=== PATIENT | male | born 1935 | race Caucasian/White ===

== ENCOUNTER 2016-10-22 15:32 | Inpatient (IN) | payer OTHER ==
[2016-10-22 16:08] LABS: BASOPHILS # (AUTO) 0.1 K/uL (0-0.2); BASOPHILS % (AUTO) 0.5 % (0.0-3.0); EOSINOPHILS # (AUTO) 0.1 K/ul (0.0-0.7); EOSINOPHILS % (AUTO) 0.5 % (0.0-7.0); HEMATOCRIT 43.6 % (42.0-52.0); HEMOGLOBIN 14.7 g/dl (14.0-18.0); IMMATURE GRANULOCYTE % (AUTO) 0.5 % (0.0-5.0); LYMPHOCYTES # (AUTO) 2.4 K/uL (0.60-3.4); LYMPHOCYTES % (AUTO) 25.4 (10.0-50.0); MEAN CORPUSCULAR HEMOGLOBIN 30.8 pg (27.0-31.0); MEAN CORPUSCULAR HGB CONC 33.7 (31.8-35.4); MEAN CORPUSCULAR VOLUME 91.4 fl (80.0-94.0); MONOCYTES # (AUTO) 0.9 K/uL (0.4-2.0); MONOCYTES % (AUTO) 9.4 (0-10); NEUTROPHILS # (AUTO) 5.9 K/ul (2.0-6.9); NEUTROPHILS % (AUTO) 63.7; PLATELET COUNT 266 10^3/uL (140-440); RED BLOOD COUNT 4.77 10^6/ul (4.70-6.10); WHITE BLOOD COUNT 9.33 K/ul (4.2-10.2)
[2016-10-22 16:29] LABS: ALBUMIN 3.2 g/dL (3.4-5.0); ALBUMIN/GLOBULIN RATIO 0.84; ANION GAP 13.1; BILIRUBIN,TOTAL 0.64 mg/dL (0.00-1.20); BUN/CREATININE RATIO 21.33; CALCIUM 9.5 mg/dL (8.2-10.2); CREATININE 0.75 mg/dL (0.60-1.10); POTASSIUM 4.1 mmol/L (3.5-5.1)
--- NOTE | 2016-10-22 16:41 | CT ---
EXAM: CT thoracic spine without contrast. HISTORY: Back pain following a fall 1 day prior. COMPARISON: Chest radiograph 06/24/2013. TECHNIQUE: Multiple axial images of the thoracic spine were obtained without intravenous contrast. Images were reformatted in the sagittal and coronal planes. FINDINGS: Curvature and alignment are normal. Vertebral body heights are maintained in the thoraci c spine. Multilevel Schmorl's node formation identified. There is an old mild superior endplate co mpression deformity of L1. No significant spinal stenosis identified. There has been previous ster notomy. Calcified granulomatous changes noted. Moderate sized hiatal hernia is seen. IMPRESSION: No acute abnormality of the thoracic spine.
--- NOTE | 2016-10-22 16:43 | CT ---
EXAM: CT lumbar spine without contrast. HISTORY: Back pain following a fall. Initial presentation. COMPARISON: 09/28/2011. TECHNIQUE: Multiple axial images of the lumbar spine were obtained without intravenous contrast. I mages were reformatted in the sagittal and coronal planes. FINDINGS: Mild compression deformity of the L3 and L4 vertebral bodies noted. There are areas of c ortical offset seen within the L3 vertebral body. L4 margins are somewhat more well defined. Old s uperior endplate compression deformity of L1 noted as well. No retropulsion identified. Disc osteo phyte formation and facet arthropathy present which cause moderate spinal stenosis at L3-4 and L4-5 and multilevel neural foraminal narrowing throughout the lumbar spine, generally moderate in degree. Paravertebral soft tissues without acute abnormality. Atherosclerotic calcifications are present. IMPRESSION: 1. Mild acute appearing L3 compression deformity. 2. Mild age indeterminate L4 compression deformity. 3. Old L1 compression deformity.
[2016-10-22] MEDS ORDERED: SOLU-MEDROL 125 MG IVP STA (16:58)
--- NOTE | 2016-10-22 17:14 | ED.PDOC ---
General ED Provider: Dr. NICK BUSTAMANTE Chief Complaint: Back Pain Stated Complaint: back pain lumbar Time Seen by Physician: 15:33 (seen at [facility] for hypoglycemia) Mode of Arrival: Wheelchair Information Source: Patient Exam Limitations: No limitations Primary Care Provider: ROBB FLAHERTY Nursing and Triage Documentation Reviewed and Agree: Yes Musculoskeletal Complaint Exam - Back Pain Complaint/Exam Mechanism of Injury: Reports: No known trauma Onset/Duration: 2 days Symptoms Are: Still present Timing: Constant Episodes Lasting: Hours Initial Severity: Moderate Current Severity: Moderate Location: Reports: Discrete Character: Reports: Aching Aggravating: Reports: Movements, Lifting, Bending, Walking Alleviating: Reports: Rest, Position Associated Signs and Symptoms: Denies: Swelling, Redness, Bruising, Fever, Weakness, Numbness, Tingling, Abdominal pain, Flank pain, Bladder incontinence, Bowel incontinence, Weight loss, Pain with weight bearing Related History: Reports: Similar episode TAD Risk Factors: Reports: Hypertension AAA Risk Factors: Reports: Hypertension Cauda Equina Risk Factors: Reports: None Epidural Abcess Risk Factors: Reports: None Related Surgical History: Reports: None Focal Tenderness: No Paraspinal Muscle Tenderness: No Paraspinal Muscle Spasm: No Scoliosis: No Lordosis: No Kyphosis: No SLR Test: Right Negative, Left Negative Hip Motion Testing Pain: Right Negative, Left Negative Focal Weakness: Present: None Focal Sensory Loss: Present: None Gait: Present: Unable Differential Diagnoses: Fracture, Strain, Sprain Review of Systems - Review Of Systems Constitutional: Reports: No symptoms Eyes: Reports: No symptoms Ears, Nose, Mouth, Throat: Reports: No symptoms Respiratory: Reports: No symptoms Cardiac: Reports: No symptoms GI: Reports: No symptoms : Reports: No symptoms Musculoskeletal: Reports: Back pain Skin: Reports: No symptoms Neurological: Reports: No symptoms Endocrine: Reports: No symptoms Hematologic/Lymphatic: Reports: No symptoms All Other Systems: Reviewed and Negative Past Medical History - Past Medical History Previously Healthy: No Endocrine: Reports: DM 2 Cardiovascular: Reports: Hypertension Respiratory: Reports: None Hematological: Reports: None Gastrointestinal: Reports: None Genitourinary: Reports: None Neuro/Psych: Reports: None Musculoskeletal: Reports: None Cancer: Reports: None - Surgical History General Surgical History: Reports: Appendectomy, Cholecystectomy, Tonsillectomy , CABG - Family History Family History: Reports: None - Social History Smoking Status: Former smoker Hx Substance Use: No Alcohol Screening: None Physical Exam - Physical Exam Appearance: Well-appearing, No pain distress, Well-nourished Eyes: SATHAY, EOMI, Conjunctiva clear ENT: Ears normal, Nose normal, Oropharynx normal Respiratory: Airway patent, Breath sounds clear, Breath sounds equal, Respirations nonlabored Cardiovascular: RRR, Pulses normal, No rub, No murmur GI/: Soft, Nontender, No masses, Bowel sounds normal, No Organomegaly Musculoskeletal: Normal strength, ROM intact, No edema, No calf tenderness Skin: Warm, Dry, Normal color Neurological: Sensation intact, Motor intact, Reflexes intact, Cranial nerves intact, Alert, Oriented Psychiatric: Affect appropriate, Mood appropriate Interpretation - Radiology Interpretation Radiology Interpretation By: Radiologist Radiology Results: Positive (l3 acute compression fracture) Physician Notification - Case Discussed Physician Notified: flaherty Time of Notification: 17:14 Admit To: Inpatient Critical Care Note - Critical Care Note Total Time (mins): 0 Course - Course Hematology/Chemistry: 10/22/16 16:00 10/22/16 16:00 Orders, Labs, Meds: Lab Review 10/22/16 16:00 WBC 9.33 RBC 4.77 Hgb 14.7 Hct 43.6 MCV 91.4 MCH 30.8 MCHC 33.7 RDW Coeff of Tramaine 14.0 Plt Count 266 Immature Gran % (Auto) 0.5 Neut % (Auto) 63.7 Lymph % (Auto) 25.4 Ward % (Auto) 9.4 Eos % (Auto) 0.5 Baso % (Auto) 0.5 Immature Gran # (Auto) 0.1 Neut # 5.9 Lymph # 2.4 Ward # 0.9 Eos # 0.1 Baso # 0.1 Sodium 140 Potassium 4.1 Chloride 104 Carbon Dioxide 27 Anion Gap 13.1 BUN 16 Creatinine 0.75 Estimated GFR (MDRD) 101.00 BUN/Creatinine Ratio 21.33 Glucose 100 Calcium 9.5 Total Bilirubin 0.64 AST 19 ALT 17 Alkaline Phosphatase 50 L Total Protein 7.0 Albumin 3.2 L Globulin 3.8 Albumin/Globulin Ratio 0.84 Orders Category Date Time Status ADMIT PATIENT INPATIENT .TO MEDSURG (MONITORED BED) ADMISSION 10/22/16 17: 05 Ordered EKG-(ED ONLY) Stat CARDIO 10/22/16 16:59 Ordered ACCUCHECK (MED/SURG, SCU) [BLOOD GLUCOSE MONITORING] CARE 10/22/16 17:11 Ordered ACCUCHECK Q6H ACTIVITY .BR with BRP CARE 10/22/16 17:05 Ordered Neuro Check [NEUROLOGICAL CHECKS] Q4HR CARE 10/22/16 17:11 Ordered TELEMETRY MONITORING TELE CARE 10/22/16 17:06 Ordered VITAL SIGNS Q8HR CARE 10/22/16 17:05 Ordered CBC W/ AUTO DIFF DAILY@0600 LAB 10/23/16 06:00 Ordered CBC W/ AUTO DIFF DAILY@0600 LAB 10/24/16 06:00 Ordered CBC W/ AUTO DIFF DAILY@0600 LAB 10/25/16 06:00 Ordered CBC W/ AUTO DIFF DAILY@0600 LAB 10/26/16 06:00 Ordered CBC W/ AUTO DIFF DAILY@0600 LAB 10/27/16 06:00 Ordered CBC W/ AUTO DIFF DAILY@0600 LAB 10/28/16 06:00 Ordered CBC W/ AUTO DIFF DAILY@0600 LAB 10/29/16 06:00 Ordered CBC W/ AUTO DIFF DAILY@0600 LAB 10/30/16 06:00 Ordered CBC W/ AUTO DIFF DAILY@0600 LAB 10/31/16 06:00 Ordered CBC W/ AUTO DIFF DAILY@0600 LAB 11/01/16 06:00 Ordered CBC W/ AUTO DIFF DAILY@0600 LAB 11/02/16 06:00 Ordered CBC W/ AUTO DIFF DAILY@0600 LAB 11/03/16 06:00 Ordered CBC W/ AUTO DIFF DAILY@0600 LAB 11/04/16 06:00 Ordered CBC W/ AUTO DIFF DAILY@0600 LAB 11/05/16 06:00 Ordered CBC W/ AUTO DIFF DAILY@0600 LAB 11/06/16 06:00 Ordered CBC W/ AUTO DIFF DAILY@0600 LAB 11/07/16 06:00 Ordered CBC W/ AUTO DIFF DAILY@0600 LAB 11/08/16 06:00 Ordered CBC W/ AUTO DIFF DAILY@0600 LAB 11/09/16 06:00 Ordered CBC W/ AUTO DIFF DAILY@0600 LAB 11/10/16 06:00 Ordered CBC W/ AUTO DIFF DAILY@0600 LAB 11/11/16 06:00 Ordered CBC W/ AUTO DIFF Stat LAB 10/22/16 16:00 Completed COMPREHENSIVE METABOLIC PANEL DAILY@0600 LAB 10/23/16 06:00 Ordered COMPREHENSIVE METABOLIC PANEL DAILY@0600 LAB 10/24/16 06:00 Ordered COMPREHENSIVE METABOLIC PANEL DAILY@0600 LAB 10/25/16 06:00 Ordered COMPREHENSIVE METABOLIC PANEL DAILY@0600 LAB 10/26/16 06:00 Ordered COMPREHENSIVE METABOLIC PANEL DAILY@0600 LAB 10/27/16 06:00 Ordered COMPREHENSIVE METABOLIC PANEL DAILY@0600 LAB 10/28/16 06:00 Ordered COMPREHENSIVE METABOLIC PANEL DAILY@0600 LAB 10/29/16 06:00 Ordered COMPREHENSIVE METABOLIC PANEL DAILY@0600 LAB 10/30/16 06:00 Ordered COMPREHENSIVE METABOLIC PANEL DAILY@0600 LAB 10/31/16 06:00 Ordered COMPREHENSIVE METABOLIC PANEL DAILY@0600 LAB 11/01/16 06:00 Ordered COMPREHENSIVE METABOLIC PANEL DAILY@0600 LAB 11/02/16 06:00 Ordered COMPREHENSIVE METABOLIC PANEL DAILY@0600 LAB 11/03/16 06:00 Ordered COMPREHENSIVE METABOLIC PANEL DAILY@0600 LAB 11/04/16 06:00 Ordered COMPREHENSIVE METABOLIC PANEL DAILY@0600 LAB 11/05/16 06:00 Ordered COMPREHENSIVE METABOLIC PANEL DAILY@0600 LAB 11/06/16 06:00 Ordered COMPREHENSIVE METABOLIC PANEL DAILY@0600 LAB 11/07/16 06:00 Ordered COMPREHENSIVE METABOLIC PANEL DAILY@0600 LAB 11/08/16 06:00 Ordered COMPREHENSIVE METABOLIC PANEL DAILY@0600 LAB 11/09/16 06:00 Ordered COMPREHENSIVE METABOLIC PANEL DAILY@0600 LAB 11/10/16 06:00 Ordered COMPREHENSIVE METABOLIC PANEL DAILY@0600 LAB 11/11/16 06:00 Ordered COMPREHENSIVE METABOLIC PANEL Stat LAB 10/22/16 16:00 Completed PARTIAL THROMBOPLASTIN TIME DAILY LAB 10/23/16 06:00 Ordered PARTIAL THROMBOPLASTIN TIME Stat LAB 10/22/16 17:10 Ordered PT WITH INR DAILY LAB 10/23/16 06:00 Ordered PT WITH INR Stat LAB 10/22/16 17:10 Ordered Atorvastatin Calcium [Lipitor] MEDS 10/22/16 21:00 Ordered 40 mg PO BEDTIME Insulin Regular, Human [Humulin R] MEDS 10/22/16 17:10 Ordered See Protocol SUBCUT PRN PRN Losartan Potassium MEDS 10/23/16 09:00 Ordered 50 mg PO DAILY Methylprednisolone Sod Succ/Pf [Solu-Medrol 125 mg] MEDS 10/22/16 21:00 Ordered 125 mg IVP Q8HR Methylprednisolone Sod Succ/Pf [Solu-Medrol 125 mg] MEDS 10/22/16 16:58 Discontinued 250 mg IVP ONCE STA Sodium Chloride 0.9% [Sodium Chloride] 1,000 ml MEDS 10/22/16 17:30 Ordered IV 75 mls/hr Sotalol HCl [Betapace] MEDS 10/22/16 21:00 Ordered 40 mg PO BID Tamsulosin HCl [Flomax] MEDS 10/23/16 09:00 Ordered 0.4 mg PO DAILY Warfarin Sodium [Coumadin] MEDS 10/23/16 17:00 Ordered [address] LUMBAR SPINE W/O CONTRAST Stat RADS 10/22/16 15:[address] THORACIC SPINE W/O CONTRAST Stat RADS 10/22/16 15:54 Completed MRI LUMBAR SPINE W/WO CONTRAST Stat RADS 10/23/16 07:00 Ordered Medications Generic Name Dose Route Start Last Admin Trade Name Freq PRN Reason Stop Dose Admin Sodium Chloride 1,000 mls @ 75 mls/hr 10/22/16 17:30 Sodium Chloride IV .[id number] [facility] Insulin Human Regular 0 unit 10/22/16 17:10 Humulin R SUBCUT PRN PRN Hyperglycemica Protocol Methylprednisolone Sodium Succinate 125 mg 10/22/16 21:00 Solu-Medrol 125 Mg IVP Q8HR MICHAEL Non-Formulary Medication 40 mg 10/22/16 21:00 Atorvastatin Calcium [Lipitor] PO BEDTIME MICHAEL Non-Formulary Medication 50 mg 10/23/16 09:00 Losartan Potassium PO DAILY MICHAEL Sotalol HCl 40 mg 10/22/16 21:00 Betapace PO BID MICHAEL Tamsulosin HCl 0.4 mg 10/23/16 09:00 Flomax PO DAILY MICHAEL Warfarin Sodium 6 mg 10/23/16 17:00 Coumadin PO QPM MICHAEL Discontinued Medications Generic Name Dose Route Start Last Admin Trade Name Freq PRN Reason Stop Dose Admin Methylprednisolone Sodium Succinate 250 mg 10/22/16 16:58 Solu-Medrol 125 Mg IVP 10/22/16 16:59 ONCE STA Vital Signs: Temp Pulse Resp BP Pulse Ox 10/22/16 15:33 98.2 F 100 H 16 151/91 H 94 L Departure - Departure Time of Disposition: 17:14 Disposition: ADMITTED INPATIENT Discharge Problem: Backache Compression fracture of third lumbar vertebra Qualifiers: Encounter type: initial encounter Fracture type: closed Qualifier Code: ( S32.030A) Wedge compression fracture of third lumbar vertebra, initial encounter for closed fracture Instructions: Back Pain (ED) Condition: Good Pt referred to PMD for follow-up: Yes (admitt) Allergies/Adverse Reactions: Allergies hydrocodone Adverse Reaction (Verified 04/01/16 22:17) Rash Possible rash Home Medications: Ambulatory Orders Sotalol HCl [Sotalol] 40 mg PO BID 06/22/13 Atorvastatin Calcium [Lipitor] 40 mg PO BEDTIME 04/01/16 Warfarin Sodium [Coumadin] 6 mg PO QPM 04/01/16 Metformin HCl [Glucophage] 1,000 mg PO QAM #30 tablet 04/05/16 Insulin Glargine,Hum.rec.anlog [Lantus] 55 unit SUBCUT BID 10/22/16 Losartan Potassium [Cozaar] 50 mg PO DAILY 10/22/16 Metformin HCl 1,000 mg PO BEDTIME 10/22/16 Tamsulosin HCl [Flomax] 0.4 mg PO DAILY 10/22/16
[2016-10-22 17:22] LABS: PROTHROMBIN TIME 20.2 SEC (9.3-11.0)
[2016-10-22] MEDS: SODIUM CHLORIDE 1,000 ML IV SCH (17:22)
[2016-10-22] MEDS: NORCO 10-325 PO SCH ×2 (17:43→23:04)
[2016-10-22 19:25] VITALS: BMI 33.3
[2016-10-22] MEDS ORDERED: NON-FORMULARY MEDICATION (Atorvastatin Calcium [Lipitor] 40 MG) PO SCH ×22 (21:00)
[2016-10-22] MEDS: BETAPACE PO SCH (21:23)
[2016-10-22] MEDS: SOLU-MEDROL 125 MG IVP SCH (21:23)
[2016-10-22] MEDS: LIPITOR ONE ×2 (21:25→21:26)
[2016-10-22] MEDS ORDERED: LIPITOR ONE (21:25)
[2016-10-22] MEDS: HUMULIN R SUBCUT PRN (23:04)
[2016-10-23 04:48] LABS: BASOPHILS % (AUTO) 0.2 % (0.0-3.0); HEMATOCRIT 44.3 % (42.0-52.0); HEMOGLOBIN 14.7 g/dl (14.0-18.0); IMMATURE GRANULOCYTE % (AUTO) 0.7 % (0.0-5.0); LYMPHOCYTES # (AUTO) 0.8 K/uL (0.60-3.4); LYMPHOCYTES % (AUTO) 14.9 (10.0-50.0); MEAN CORPUSCULAR HEMOGLOBIN 30.4 pg (27.0-31.0); MEAN CORPUSCULAR HGB CONC 33.2 (31.8-35.4); MEAN CORPUSCULAR VOLUME 91.5 fl (80.0-94.0); MONOCYTES # (AUTO) 0.1 K/uL (0.4-2.0); MONOCYTES % (AUTO) 1.1 (0-10); NEUTROPHILS # (AUTO) 4.6 K/ul (2.0-6.9); NEUTROPHILS % (AUTO) 83.1; PLATELET COUNT 247 10^3/uL (140-440); RED BLOOD COUNT 4.84 10^6/ul (4.70-6.10); WHITE BLOOD COUNT 5.56 K/ul (4.2-10.2)
[2016-10-23 05:01] LABS: PARTIAL THROMBOPLASTIN TIME 29.7 SEC (23.9-40.0); PROTHROMBIN TIME 17.4 SEC (9.3-11.0)
[2016-10-23] MEDS: NORCO 10-325 PO SCH (05:10)
[2016-10-23] MEDS: SOLU-MEDROL 125 MG IVP SCH ×3 (05:11→20:01)
[2016-10-23 05:13] LABS: ALBUMIN 3.1 g/dL (3.4-5.0); ALBUMIN/GLOBULIN RATIO 0.86; ANION GAP 12.3; BILIRUBIN,TOTAL 0.58 mg/dL (0.00-1.20); BUN/CREATININE RATIO 20.83; CALCIUM 9.3 mg/dL (8.2-10.2); CREATININE 0.72 mg/dL (0.60-1.10); POTASSIUM 4.3 mmol/L (3.5-5.1); TOTAL PROTEIN 6.7 g/dL (5.8-8.1)
[2016-10-23] MEDS: HUMULIN R SUBCUT PRN ×3 (06:16→17:18)
[2016-10-23] MEDS: SODIUM CHLORIDE 1,000 ML IV SCH ×2 (07:30→22:46)
[2016-10-23] MEDS: COZAAR PO SCH (08:05)
[2016-10-23] MEDS: BETAPACE PO SCH ×2 (08:06→20:04)
[2016-10-23] MEDS: FLOMAX PO SCH (08:06)
[2016-10-23] MEDS ORDERED: NON-FORMULARY MEDICATION (Losartan Potassium 50 MG) PO SCH (09:00)
--- NOTE | 2016-10-23 09:43 | PCM.PROG ---
Attending Provider: ATTENDING PROVIDER: Dr. ROBB BROWER DATE OF SERVICE: 10/23/16 SUBJECTIVE: This 80 year old WHITE/ M was hospitalized 10/22/16. The patient is admitted with back pain, history of hypoglycemia and fall at home. The patient states he has pain only when he "straightens out". The patient was admitted with back pain and previously had been in a [facility] and was discharged home. He was brought to the Emergency Department here with increased pain and had fallen. Upon arriving, sugar was 25 at home. In the emergency room, x-ray of L-spine showed acute fracture so will do MRI of L-spine today. REVIEW OF SYSTEMS: CONSTITUTIONAL: No night sweats. No fatigue, malaise, lethargy. No fever or chills. HEENT: Eyes: No visual changes. No eye pain. No eye discharge. ENT: No runny nose. No epistaxis. No sinus pain. No odynophagia. No congestion. RESPIRATORY: No cough, no congestion. No hemoptysis. CARDIOVASCULAR: No angina symptoms. No CHF symptoms. No atypical chest pain for CAD. No palpitations. No shortness of breath. GASTROINTESTINAL: No abdominal pain. No nausea or vomiting. No diarrhea or constipation. No hematemesis. No hematochezia. GENITOURINARY: No urgency. No frequency. No dysuria. No hematuria. No obstructive symptoms. No discharge. No pain. No significant abnormal bleeding. MUSCULOSKELETAL: Back pain. NEUROLOGICAL: Awake, alert, oriented to time, place and person. No headache. No neck pain. No syncope. No seizures. No dizziness. PSYCHIATRIC: Not anxious. No depression. No suicidal thoughts. No homicidal thoughts. SKIN: No rash. No lesions. No wounds. No skin breakdown. ENDOCRINE: No unexplained weight loss. No weight gain. HEMATOLOGIC/LYMPHATIC: No anemia. No purpura. No petechiae. No prolonged or excessive bleeding. No palpable lymph nodes. PHYSICAL EXAMINATION: GENERAL: The patient is awake, alert with bouts of confusion lying in bed in no distress. VITAL SIGNS: Temperature 96.4 F, Pulse 70, Respiratory Rate 16, BP 156/94, Pulse Ox 95% HEENT: Head normocephalic, atraumatic. Eyes: Extraocular muscles are intact. Pupils are equal, round and reactive to light and accommodation. Ears: No lesions. Nose appeared normal. Throat: No exudate or erythema. NECK: Supple. No JVD, no carotid bruit. No lymphadenopathy or thyromegaly. LUNGS: Clear to auscultation. Percussion note normal. Chest symmetrical. HEART: S1, S2, no S3. No murmurs. No cyanosis or clubbing. No ascites. Pulses: Dorsalis pedis and posterior tibial pulses +1 to +2 both sides. ABDOMEN: Soft. Non-tender. Bowel sounds active times four quadrants. No CVA tenderness. No mass felt. EXTREMITIES: No edema. Full range of motion of all extremities, equal. NEUROLOGIC: No focal deficit. Cranial nerves II through XII are grossly intact. No headache, no double vision or headache. SKIN: Not dry. Intact. Turgor-normal. LYMPHATIC: No palpable lymph nodes/no lymphedema. MUSCULOSKELETAL: Normal joints with no swelling. Muscle tone is normal. LAB REVIEW: 10/23/16 04:46 10/23/16 04:46 10/23/16 04:46: WBC 5.56, RBC 4.84, Hgb 14.7, Hct 44.3, MCV 91.5, MCH 30.4, MCHC 33.2, RDW Coeff of Tramaine 14.3, Plt Count 247, Immature Gran % (Auto) 0.7, Neut % (Auto) 83.1, Lymph % (Auto) 14.9, Hopkins % (Auto) 1.1, Eos % (Auto) 0.0, Baso % (Auto) 0.2, Immature Gran # (Auto) 0.0, Neut # 4.6, Lymph # 0.8, Hopkins # 0.1 L, Eos # 0.0, Baso # 0.0, PT 17.4 H, INR 1.69, APTT 29.7, Sodium 140, Potassium 4.3, Chloride 104, Carbon Dioxide 28, Anion Gap 12.3, BUN 15, Creatinine 0.72, Estimated GFR (MDRD) 106.00, BUN/Creatinine Ratio 20.83, Glucose 147 H, Calcium 9.3, Total Bilirubin 0.58, AST 17, ALT 21, Alkaline Phosphatase 50 L, Total Protein 6.7, Albumin 3.1 L, Globulin 3.6, Albumin/ Globulin Ratio 0.86 ASSESSMENT: 1. Back pain with acute fracture per x-ray. 2. Diabetes mellitus Type 2. 3. Hypoglycemia. PLAN: 1. MRI L-spine without contrast 2. Neuro checks q.4h 3. Monitor glucose 4. The patient is to continue Toxey 10 mg q.6h for pain 5. ADA diet Plan and coordination of the patient's care discussed in the presence of Brewery Pumper and nurse. CONDITION: Stable SCRIBED BY: LISA HOLGUIN Overlock Elastic Attacher scribed while in presence of service performed by Dr. ROBB BROWER/NEMO BARBER APRN on 10/23/16 ([id number])
--- NOTE | 2016-10-23 11:42 | MRI ---
EXAM: MRI lumbar spine without IV contrast. DATE: 10/23/2016. HISTORY: Lumbar back pain. TECHNIQUE: Sagittal and axial T1W and T2W sequences of the lumbar spine along with sagittal IR and coronal T2W sequences were obtained using 1.5 Silke magnet. No IV contrast. COMPARISON: CT L-spine 10/22/2016. FINDINGS: There are five [id number] lumbar vertebra. Leftward curvature of the lower thoracic spine is seen. No lumbar scoliosis is evident. Mild anterior wedge appearance of the L3 vertebral body is observed, along with IR hyperintensity and low T1W signal in the upper half of the L3 body, consistent with a recent fracture. Mild/moderate L1 and mild L4 chronic anterior wedge compression fractures are observed. Mild posterior wedge configuration of the L5 body is also chronic. A 2.2 mm anterior subluxation of L5 relative to L4 and 2 mm anterolisthesis of S1 relative to L5 are due t o facet disease. No other subluxation, osseous malignancy, or pars interarticularis defect is ident ified. Bone marrow signal is somewhat heterogeneous, likely due to fatty infiltration. Moderate dis c space narrowing is detected at L5-S1. Remaining intervertebral discs are normal in height. Spino us process arthritis is observed at multiple levels, especially L3-4 and L4-5. No sacral fracture o r stress reaction is identified. There is no acute sacroiliitis. Conus medullaris terminates at L1 . No cord edema, syrinx, myelomalacia, or neoplasm is demonstrated. No retroperitoneal lymphadenopathy, paraspinal mass, or aortic aneurysm is detected. Calcifications are present within the abdominal aorta and common iliac arteries. Right psoas muscle is somewhat s maller than the left, likely due to atrophy. Posterior paraspinal muscles are symmetric bilaterally . Visible portions of the liver, spleen, right adrenal gland and kidneys are limited by breathing m otion artifacts, but reveal no definitive neoplasm. Left adrenal body measures 9 mm transverse x 16 mm length, similar to recent CT scan. Descending and sigmoid colon diverticuli are observed. Segmental analysis: T12-L1: Minimal posterior disc bulge and minor posterior cortical buckling at the L1 superior endpl ate do not cause cord compression, central stenosis or foraminal stenosis. L1-2: Minor concentric disc bulge and mild facet disease cause minor/mild bilateral foraminal narro wing. No central canal stenosis. L2-3: Small concentric disc bulge, mild facet arthropathy, and mild ligamentum flavum hypertrophy c ause mild central canal stenosis and mild bilateral foraminal stenoses. L3-4: Small concentric disc bulge, mild/moderate facet arthropathy, and moderate ligamentum flavum hypertrophy cause moderate central canal stenosis, mild/moderate right foraminal stenosis and modera te left foraminal stenosis. L4-5: Minor anterior subluxation of L5, superimposed midline disc extrusion (2.9 mm AP x 8 mm trans verse x 4 mm behind the L5 superior endplate), small concentric disc bulge, and mild facet arthropat hy cause triangulation of the canal and mild bilateral foraminal stenoses. L5-S1: Minor anterior subluxation of S1, small bilateral posterolateral spondylotic ridges at the L 5 inferior endplate, small pseudodisc bulge, and mild facet arthropathy cause moderate right and mar ked left foraminal stenoses. Each L5 nerve root contacts disc bulge/osteophyte at the foramen. No central canal stenosis. IMPRESSIONS: 1. Lumbar spine mild spondylosis, mild/moderate facet arthropathy, minor subluxations (L4-5 and L5- S1), and multilevel DDD. 2. Recent, mild superior endplate compression fracture of L3. Chronic compression fractures of L1, L4, and L5. Consider osteopenia. 3. Multilevel central canal stenosis (L3-3: Mild. L3-4: Moderate. L4-5: Minor). 4. Multilevel foraminal stenoses, especially bilateral L5-S1. Each L5 nerve roots compromised near the foramen and could be sources for pain/radiculopathy. 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 6. Descending and sigmoid colon diverticulosis. 7. Marked aortic and iliac artery atherosclerosis. 8. Left adrenal body fullness - DDX: Hyperplasia, adenoma, artifact. Malignancy is less likely, n o known primary malignancy.
[2016-10-23] MEDS ORDERED: NORCO 10-325 ONE (12:18)
[2016-10-23] MEDS: TORADOL IVP SCH ×2 (12:44→20:01)
--- NOTE | 2016-10-23 13:24 | PN ---
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 The patient, at the same time, had back pain but that issue was not addressed so the rod mill tender called stating that the patient had another attack of hypoglycemia along with back pain where he was unable to get up with moderate to severe pain. The patient's rod mill tender was advised to bring the patient to [facility] Emergency Room. The patient in the emergency room was seen by Dr. Wells and was worked up. The patient's electrolytes and blood sugar were reported as normal but the CT scan of the spine showed mild new compression fractures of L3, one old fracture of one of the vertebra. The patient's neurological status was normal except for mental status, which has been as before, oriented to place and person but not to date and year. REVIEW OF SYSTEMS: CONSTITUTIONAL: No night sweats. No fatigue, malaise, lethargy. No fever or chills. HEENT: Eyes: No visual changes. No eye pain. No eye discharge. ENT: No runny nose. No epistaxis. No sinus pain. No sore throat. No odynophagia. No congestion. RESPIRATORY: No cough, no congestion. No hemoptysis. CARDIOVASCULAR: No angina symptoms. No CHF symptoms. No atypical chest pain for CAD. No palpitations. No shortness of breath. GASTROINTESTINAL: No abdominal pain. No nausea or vomiting. No diarrhea or constipation. No hematemesis. No hematochezia. GENITOURINARY: No urgency. No frequency. No dysuria. No hematuria. No obstructive symptoms. No discharge. No pain. No significant abnormal bleeding. MUSCULOSKELETAL: Back pain. NEUROLOGICAL: No headache. No neck pain. No syncope. No seizures. No dizziness. PSYCHIATRIC: Not anxious. No depression. No suicidal thoughts. No homicidal thoughts. SKIN: No rash. No lesions. No wounds. ENDOCRINE: No unexplained weight loss. No weight gain. HEMATOLOGIC/LYMPHATIC: No anemia. No purpura. No petechiae. No prolonged or excessive bleeding. No palpable lymph nodes. PHYSICAL EXAMINATION: GENERAL: The patient is alert, answering all the questions. VITAL SIGNS: Temperature 98.4, pulse 70, respiratory rate 15, BP 130/80. HEENT: Head normocephalic, atraumatic. Eyes: Extraocular muscles are intact. Pupils are equal, round and reactive to light and accommodation. Ears: No lesions. Nose appeared normal. Throat: No exudate or erythema. NECK: Supple. No JVD, no carotid bruit. No lymphadenopathy or thyromegaly. LUNGS: Decreased breath sounds but clear to auscultation. Percussion note normal. Chest symmetrical. HEART: S1, S2, no S3. No murmurs. No cyanosis or clubbing. No ascites. Pulses: Dorsalis pedis and posterior tibial pulses +1 to +2 both sides. ABDOMEN: Soft. Nontender. Bowel sounds active. No CVA tenderness. No mass felt. EXTREMITIES: No pedal edema. Full range of motion of all extremities, equal. NEUROLOGIC: No focal deficit. Cranial nerves II through XII are grossly intact. No headache, no double vision or headache. SKIN: Not dry. Intact. Turgor - normal. LYMPHATIC: No palpable lymph nodes/no lymphedema. MUSCULOSKELETAL: Normal joints with no swelling. Muscle tone is normal. ASSESSMENT: 1. HISTORY OF HYPOGLYCEMIA TWICE TODAY. 2. DIABETES MELLITUS, WHICH WAS UNCONTROLLED FOR A LONG TIME. 3. HYPERTENSION. 4. DJD SPINE WITH COMPRESSION FRACTURE, NEW, MILD, L3. 5. HYPERTENSION. 6. DYSLIPIDEMIA. PLAN: 1. Admit the patient to pain control. 2. Watch for neurologic status. 3. MRI of the L-spine. 4. Complete bed rest. 5. Daily CBC, CMP. 6. Telemetry. CONDITION: Stable. ADDENDUM: I gave an order at 6:47 p.m. to JOHN Blair, to keep the patient complete bedrest and neurochecks q.2hourly. I called the nursing station . TIME SPENT: More than 30 minutes. Plan and coordination of the patient's care discussed in the presence of nurse. CAROLINE
[2016-10-23] MEDS ORDERED: COUMADIN PO SCH (17:00)
[2016-10-23] MEDS: COUMADIN PO SCH (17:18)
[2016-10-23] MEDS: LIPITOR PO SCH (20:04)
[2016-10-24 05:28] LABS: BASOPHILS % (AUTO) 0.1 % (0.0-3.0); HEMATOCRIT 40.1 % (42.0-52.0); HEMOGLOBIN 13.6 g/dl (14.0-18.0); LYMPHOCYTES % (AUTO) 8.6 (10.0-50.0); MEAN CORPUSCULAR HEMOGLOBIN 30.8 pg (27.0-31.0); MEAN CORPUSCULAR HGB CONC 33.9 (31.8-35.4); MEAN CORPUSCULAR VOLUME 90.7 fl (80.0-94.0); MONOCYTES # (AUTO) 0.6 K/uL (0.4-2.0); MONOCYTES % (AUTO) 5.2 (0-10); NEUTROPHILS # (AUTO) 9.6 K/ul (2.0-6.9); NEUTROPHILS % (AUTO) 85.1; PLATELET COUNT 251 10^3/uL (140-440); RED BLOOD COUNT 4.42 10^6/ul (4.70-6.10); WHITE BLOOD COUNT 11.33 K/ul (4.2-10.2)
[2016-10-24] MEDS: TORADOL IVP SCH ×3 (05:31→21:43)
[2016-10-24] MEDS: SOLU-MEDROL 125 MG IVP SCH ×3 (05:33→21:43)
[2016-10-24 05:46] LABS: ALBUMIN 2.9 g/dL (3.4-5.0); ALBUMIN/GLOBULIN RATIO 0.97; ANION GAP 12.4; BILIRUBIN,TOTAL 0.36 mg/dL (0.00-1.20); BUN/CREATININE RATIO 30.12; CALCIUM 8.7 mg/dL (8.2-10.2); CREATININE 0.83 mg/dL (0.60-1.10); POTASSIUM 4.4 mmol/L (3.5-5.1); TOTAL PROTEIN 5.9 g/dL (5.8-8.1)
[2016-10-24] MEDS: HUMULIN R SUBCUT PRN ×4 (06:44→21:19)
[2016-10-24] MEDS: GLUCOPHAGE PO SCH ×2 (08:48→16:38)
[2016-10-24] MEDS: COZAAR PO SCH (08:49)
[2016-10-24] MEDS: BETAPACE PO SCH ×2 (08:49→21:16)
[2016-10-24] MEDS: FLOMAX PO SCH (08:49)
--- NOTE | 2016-10-24 11:23 | PCM.PROG ---
Attending Provider: ATTENDING PROVIDER: Dr. ROBB BROWER DATE OF SERVICE: 10/24/16 SUBJECTIVE: This 80 year old WHITE/ M was hospitalized 10/22/16. The patient is alert and oriented this morning. He states no pain and he has been sleeping and eating well. Glucose is elevated. He is tolerating Toradol q.8hr. MRI showed acute L3 compression fracture consistent with CT scan. REVIEW OF SYSTEMS: CONSTITUTIONAL: No night sweats. No fatigue, malaise, lethargy. No fever or chills. HEENT: Eyes: No visual changes. No eye pain. No eye discharge. ENT: No runny nose. No epistaxis. No sinus pain. No odynophagia. No congestion. RESPIRATORY: No cough, no congestion. No hemoptysis. CARDIOVASCULAR: No angina symptoms. No CHF symptoms. No atypical chest pain for CAD. No palpitations. No shortness of breath. GASTROINTESTINAL: No abdominal pain. No nausea or vomiting. No diarrhea or constipation. No hematemesis. No hematochezia. GENITOURINARY: No urgency. No frequency. No dysuria. No hematuria. No obstructive symptoms. No discharge. No pain. No significant abnormal bleeding. MUSCULOSKELETAL: Minimal back pain with movement. NEUROLOGICAL: Awake, alert, oriented to time, place and person. No headache. No neck pain. No syncope. No seizures. No dizziness. PSYCHIATRIC: Not anxious. No depression. No suicidal thoughts. No homicidal thoughts. SKIN: No rash. No lesions. No wounds. ENDOCRINE: No unexplained weight loss. No weight gain. HEMATOLOGIC/LYMPHATIC: No anemia. No purpura. No petechiae. No prolonged or excessive bleeding. No palpable lymph nodes. PHYSICAL EXAMINATION: GENERAL: The patient is awake, alert and oriented in no distress. VITAL SIGNS: Temperature 97.5 F, Pulse 68, Respiratory Rate 16, BP 129/72, Pulse Ox 94% HEENT: Head normocephalic, atraumatic. Eyes: Extraocular muscles are intact. Pupils are equal, round and reactive to light and accommodation. Ears: No lesions. Nose appeared normal. Throat: No exudate or erythema. NECK: Supple. No JVD, no carotid bruit. No lymphadenopathy or thyromegaly. LUNGS: Clear to auscultation bilaterally. Percussion note normal. Chest symmetrical. HEART: S1, S2, no S3. No murmur. No cyanosis or clubbing. No ascites. Pulses : Dorsalis pedis and posterior tibial pulses +1 to +2 both sides. ABDOMEN: Soft. Non-tender. Bowel sounds active. No CVA tenderness. No mass felt. Minimal back pain. EXTREMITIES: No edema. Full range of motion of all extremities, equal. NEUROLOGIC: No focal deficit. Cranial nerves II through XII are grossly intact. No headache, no double vision or headache. SKIN: Not dry. Intact. Turgor-normal. LYMPHATIC: No palpable lymph nodes/no lymphedema. MUSCULOSKELETAL: Normal joints with no swelling. Muscle tone is normal. LAB REVIEW: 10/24/16 05:26 10/24/16 05:26 10/24/16 05:26: WBC 11.33 H D, RBC 4.42 L, Hgb 13.6 L, Hct 40.1 L, MCV 90.7, MCH 30.8, MCHC 33.9, RDW Coeff of Tramaine 13.8, Plt Count 251, Immature Gran % (Auto ) 1.0, Neut % (Auto) 85.1, Lymph % (Auto) 8.6 L, Worth % (Auto) 5.2, Eos % (Auto ) 0.0, Baso % (Auto) 0.1, Immature Gran # (Auto) 0.1, Neut # 9.6 H, Lymph # 1.0 , Worth # 0.6, Eos # 0.0, Baso # 0.0, Sodium 138, Potassium 4.4, Chloride 106, Carbon Dioxide 24, Anion Gap 12.4, BUN 25 H, Creatinine 0.83, Estimated GFR ( MDRD) 90.00, BUN/Creatinine Ratio 30.12, Glucose 348 H, Calcium 8.7, Total Bilirubin 0.36, AST 11 L, ALT 19, Alkaline Phosphatase 48 L, Total Protein 5.9, Albumin 2.9 L, Globulin 3.0, Albumin/Globulin Ratio 0.97 ASSESSMENT: 1. Acute back pain 2. L3 compression fracture 3. Diabetes mellitus Type 2 with periods of hypoglycemia PLAN: 1. Continue Toradol 30 mg q.8hr for pain 2. Will add Glucophage 1000 mg b.i.d. 3. Continue sliding scale insulin Plan and coordination of the patient's care discussed in the presence of Dairy Consultant and nurse. CONDITION: Stable SCRIBED BY: LISA HOLGUIN Machine Lacer scribed while in presence of service performed by Dr. ROBB BROWER/NEMO BARBER APRN on 10/24/16 ([id number])
[2016-10-24] MEDS: SODIUM CHLORIDE 1,000 ML IV SCH (11:54)
--- NOTE | 2016-10-24 13:14 | HP ---
DATE OF SERVICE: 10/22/16 REASON FOR HOSPITALIZATION: Back pain and hypoglycemia HISTORY OF PRESENT ILLNESS: The patient is a 80 year old white male was earlier seen at one of the [facility] with hypoglycemia and the back pain. The patient was sent home after he was noted to have hypoglycemia. The patient went to [facility] at [facility]. The patient reached home and had another episode of hypoglycemia and was not able to get up with severe pain. The patient came to the emergency room at [facility] at 15:33pm. At time the patient complained mostly of the back pain. The patient was investigated for the back pain and he is noted to have mild acute fracture of L3 with DJD of the spine. The patient underwent lab tests. Glucose was noted to be 100. The patient lives by himself with help of caretakers. REVIEW OF SYSTEMS: CONSTITUTIONAL: No night sweats. No fatigue, malaise, lethargy. No fever or chills. HEENT: Eyes: No visual changes. No eye pain. No eye discharge. ENT: No runny nose. No epistaxis. No sinus pain. No sore throat. No odynophagia. No ear pain. No congestion. RESPIRATORY: No cough, no congestion. No hemoptysis. CARDIOVASCULAR: No angina symptoms. No CHF symptoms. No atypical chest pain for CAD. No palpitations. No shortness of breath. GASTROINTESTINAL: No abdominal pain. No nausea or vomiting. No diarrhea or constipation. No hematemesis. No hematochezia. GENITOURINARY: No urgency. No frequency. No dysuria. No hematuria. No obstructive symptoms. No discharge. No pain. No significant abnormal bleeding. MUSCULOSKELETAL: No musculoskeletal pain. No joint swelling. No arthritis. NEUROLOGICAL: No headache. No neck pain. No syncope. No seizures. No dizziness. PSYCHIATRIC: Not anxious. No depression. No suicidal thoughts. No homicidal thoughts. SKIN: No rash. No lesions. No wounds. ENDOCRINE: No unexplained weight loss. No weight gain. HEMATOLOGIC/LYMPHATIC: No anemia. No purpura. No petechiae. No prolonged or excessive bleeding. No palpable lymph nodes. PERSONAL/FAMILY/SOCIAL HISTORY: The patient lives by himself. Non smoker. No alcohol abuse. He does practically all activity of daily living. He is usually oriented to place and person and time at times. The patient is overall noncompliant for many years of his diet and medications. The patient's POA is a nephew of Bebo Lerner. PAST MEDICAL/SURGICAL PROBLEMS: Dementia Diabetes Mellitus with A1c 13 on 07/04 Cancer of Prostate History of pulmonary embolism Atrial fibrillation PAD Coronary bypass surgery, 1995 PVC LVH Dyslipidemia BPH Back problems with backache and severe DJD of the spine MEDICATIONS: Sotalol 40mg twice a day Lipitor 40mg PO daily Coumadin 6mg PO PM Metformin 1,000mg PO QAM Lantus 55 unit SUBCUT twice a day Losartan 50mg PO daily Metformin 1000mg PO bedtime Flomax 0.4mg PO daily ALLERGIES: Hydrocodone Muscle relaxer PHYSICAL EXAMINATION: GENERAL: The patient is oriented to time, place and person. VITAL SIGNS: Temperature 98.2, pulse 100, respiratory rate 16, blood pressure 150/90, pulse ox 94% HEENT: Head normocephalic, atraumatic. Eyes: Extraocular muscles are intact. Pupils are equal, round and reactive to light and accommodation. Ears: No lesions. Nose appeared normal. Throat: No exudate or erythema. NECK: Supple. No JVP, no carotid bruit. No lymphadenopathy or thyromegaly. LUNGS:Decrease breath sounds but clear to auscultation. Percussion note normal. Chest symmetrical. HEART: S1, S2, no S3. No murmurs. No cyanosis or clubbing. No ascites. Pulses: Dorsalis pedis and posterior tibial pulses +2 bilaterally sides. PMI not palpable. ABDOMEN: Soft. Nontender. Bowel sounds active. No CVA tenderness. No mass felt. EXTREMITIES: No edema. Full range of motion of all extremities, equal. NEUROLOGIC: No focal deficit. Cranial nerves II through XII are grossly intact. No headache, no double vision or headache. SKIN: Not dry. Intact. Turgor - normal. LYMPHATIC: No palpable lymph nodes/no lymphedema. MUSCULOSKELETAL: Normal joints with no swelling. Muscle tone is normal. ASSESSMENT: 1. Back pain with old L1 compression deformity, Mild acute appearing L3 compression deformity and L4 Compression deformity 2. Hypoglycemia 3. Diabetes Mellitus, uncontrolled 4. Dementia, early 5. C of the prostate 6. History of pulmonary embolism 7. Atrial fibrillation 8. Peripheral arterial disease 9. Coronary bypass surgery, 1995. 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 Toradol 30mg Q 8 for pain 2. Telemetry 3. Sliding scale with coverage 4. Monitor neurological signs 5. Awaiting MRI reports which will be done tomorrow 6. Neuro checks two hourly 7. Complete bedrest 8. The patient explained about his back problems in detail. 9. Hypoglycemia discussed in detail with treatment and symptoms. 10.Advised to take his medication on regular basis CONDITION: Stable TIME SPENT: More than 70 minutes. MTDD
--- NOTE | 2016-10-24 14:43 | PN ---
DATE OF SERVICE: 10/23/16 SUBJECTIVE: The patient is a 80 year old white male hospitalized with back pain with L3 fracture which could be mild acute. The patient's pain is under control and he is sitting in the chair very comfortably eating his lunch. The patient is oriented to person and place. REVIEW OF SYSTEMS: CONSTITUTIONAL: No night sweats. No fatigue, malaise, lethargy. No fever or chills. HEENT: Eyes: No visual changes. No eye pain. No eye discharge. ENT: No runny nose. No epistaxis. No sinus pain. No sore throat. No odynophagia. No congestion. RESPIRATORY: No cough, no congestion. No hemoptysis. CARDIOVASCULAR: No angina symptoms. No CHF symptoms. No atypical chest pain for CAD. No palpitations. No shortness of breath. No PND. No orthopnea. GASTROINTESTINAL: No abdominal pain. No nausea or vomiting. No diarrhea or constipation. No hematemesis. No hematochezia. GENITOURINARY: No urgency. No frequency. No dysuria. No hematuria. No obstructive symptoms. No discharge. No pain. No significant abnormal bleeding. MUSCULOSKELETAL: No musculoskeletal pain; no joint swelling. Complains of pain the back which is 2-3 on scale of 1-10. NEUROLOGICAL: No headache. No neck pain. No syncope. No seizures. No dizziness. PSYCHIATRIC: Not anxious. No depression. No suicidal thoughts. No homicidal thoughts. SKIN: No rash. No lesions. No wounds. ENDOCRINE: No unexplained weight loss. No weight gain. HEMATOLOGIC/LYMPHATIC: No anemia. No purpura. No petechiae. No prolonged or excessive bleeding. No palpable lymph nodes. PHYSICAL EXAMINATION: GENERAL: The patient is oriented to place and person. VITAL SIGNS: Temperature 96.4, pulse 70, respiratory rate 16, blood pressure 150/90 and pulse ox 95%. HEENT: Head normocephalic, atraumatic. Eyes: Extraocular muscles are intact. Pupils are equal, round and reactive to light and accommodation. Ears: No lesions. Nose appeared normal. Throat: No exudate or erythema. NECK: Supple. No JVD, no carotid bruit. No lymphadenopathy or thyromegaly. LUNGS: Clear to auscultation. Percussion note normal. Chest symmetrical. HEART: S1, S2, no S3. No murmurs. No cyanosis or clubbing. No ascites. Pulses: Dorsalis pedis and posterior tibial pulses +1 to +2 both sides. ABDOMEN: Soft. Nontender. Bowel sounds active. No CVA tenderness. No mass felt. EXTREMITIES: No edema. Full range of motion of all extremities, equal. NEUROLOGIC: No focal deficit. Cranial nerves II through XII are grossly intact. No headache, no double vision or headache. SKIN: Not dry. Intact. Turgor - normal. LYMPHATIC: No palpable lymph nodes/no lymphedema. MUSCULOSKELETAL: Normal joints with no swelling. Muscle tone is normal. ASSESSMENT: 1. Acute L3 fracture, old compression fracture. The patient's pain seems to be under control we are waiting for MRI report 2. History of Hypoglycemia, twice, one time he was taken to [facility] in one of the hospitals in ER and was discharged yesterday, the second time the patient had hypoglycemia at home. This morning the patient's blood sugar was 147 and today it is 200. The patient is going through sliding scale CONDITION: Stable PLAN: 1. Educated about hypoglycemia and what to do about it 2. The patient is non-compliant and forgetful 3. The problem is that he is taking his insulin probably the way it should be taken. We will have a talk with the animal care service worker. TIME SPENT: More than 30 minutes. Plan and coordination of the patient's care discussed in the presence of nurse. CAROLINE
[2016-10-24] MEDS: COUMADIN PO SCH (16:38)
[2016-10-24] MEDS: LIPITOR PO SCH (21:17)
[2016-10-25] MEDS: SODIUM CHLORIDE 1,000 ML IV SCH (01:24)
[2016-10-25] MEDS: TORADOL IVP SCH (05:00)
[2016-10-25] MEDS: SOLU-MEDROL 125 MG IVP SCH (05:00)
[2016-10-25] MEDS: HUMULIN R SUBCUT PRN ×4 (05:33→23:29)
[2016-10-25 05:58] LABS: BASOPHILS % (AUTO) 0.1 % (0.0-3.0); HEMATOCRIT 41.6 % (42.0-52.0); HEMOGLOBIN 14.1 g/dl (14.0-18.0); IMMATURE GRANULOCYTE % (AUTO) 0.7 % (0.0-5.0); LYMPHOCYTES # (AUTO) 1.1 K/uL (0.60-3.4); LYMPHOCYTES % (AUTO) 7.2 (10.0-50.0); MEAN CORPUSCULAR HEMOGLOBIN 31.1 pg (27.0-31.0); MEAN CORPUSCULAR HGB CONC 33.9 (31.8-35.4); MEAN CORPUSCULAR VOLUME 91.6 fl (80.0-94.0); MONOCYTES # (AUTO) 0.6 K/uL (0.4-2.0); MONOCYTES % (AUTO) 3.8 (0-10); NEUTROPHILS # (AUTO) 13.1 K/ul (2.0-6.9); NEUTROPHILS % (AUTO) 88.2; PLATELET COUNT 266 10^3/uL (140-440); RED BLOOD COUNT 4.54 10^6/ul (4.70-6.10); WHITE BLOOD COUNT 14.82 K/ul (4.2-10.2)
[2016-10-25 06:13] LABS: ALBUMIN/GLOBULIN RATIO 0.88; ANION GAP 14.3; BILIRUBIN,TOTAL 0.33 mg/dL (0.00-1.20); BUN/CREATININE RATIO 33.76; CALCIUM 8.6 mg/dL (8.2-10.2); CREATININE 0.77 mg/dL (0.60-1.10); POTASSIUM 4.3 mmol/L (3.5-5.1); TOTAL PROTEIN 6.4 g/dL (5.8-8.1)
[2016-10-25] MEDS ORDERED: TORADOL IVP PRN (08:30)
[2016-10-25] MEDS: FLOMAX PO SCH (08:44)
[2016-10-25] MEDS: COZAAR PO SCH (08:44)
[2016-10-25] MEDS: GLUCOPHAGE PO SCH ×2 (08:44→17:26)
[2016-10-25] MEDS: BETAPACE PO SCH ×2 (08:45→22:53)
[2016-10-25] MEDS: PREDNISONE PO SCH ×2 (09:22→17:26)
[2016-10-25] MEDS: NORCO 5-325 PO PRN (15:10)
[2016-10-25] MEDS: COUMADIN PO SCH (17:26)
[2016-10-25] MEDS: LIPITOR PO SCH (22:53)
[2016-10-26 05:39] LABS: BASOPHILS % (AUTO) 0.1 % (0.0-3.0); EOSINOPHILS % (AUTO) 0.1 % (0.0-7.0); HEMATOCRIT 41.3 % (42.0-52.0); HEMOGLOBIN 13.8 g/dl (14.0-18.0); IMMATURE GRANULOCYTE % (AUTO) 0.7 % (0.0-5.0); LYMPHOCYTES # (AUTO) 2.5 K/uL (0.60-3.4); LYMPHOCYTES % (AUTO) 19.2 (10.0-50.0); MEAN CORPUSCULAR HEMOGLOBIN 30.5 pg (27.0-31.0); MEAN CORPUSCULAR HGB CONC 33.4 (31.8-35.4); MEAN CORPUSCULAR VOLUME 91.2 fl (80.0-94.0); MONOCYTES # (AUTO) 1.2 K/uL (0.4-2.0); MONOCYTES % (AUTO) 9.2 (0-10); NEUTROPHILS # (AUTO) 9.3 K/ul (2.0-6.9); NEUTROPHILS % (AUTO) 70.7; PLATELET COUNT 230 10^3/uL (140-440); RED BLOOD COUNT 4.53 10^6/ul (4.70-6.10)
[2016-10-26 06:06] LABS: ALBUMIN 2.8 g/dL (3.4-5.0); ALBUMIN/GLOBULIN RATIO 0.93; ANION GAP 11.1; BILIRUBIN,TOTAL 0.39 mg/dL (0.00-1.20); BUN/CREATININE RATIO 28.16; CALCIUM 8.5 mg/dL (8.2-10.2); CREATININE 0.71 mg/dL (0.60-1.10); POTASSIUM 4.1 mmol/L (3.5-5.1); TOTAL PROTEIN 5.8 g/dL (5.8-8.1)
[2016-10-26] MEDS: HUMULIN R SUBCUT PRN ×4 (06:40→20:50)
[2016-10-26] MEDS: GLUCOPHAGE PO SCH ×2 (07:43→17:03)
[2016-10-26] MEDS: PREDNISONE PO SCH ×2 (07:43→17:03)
[2016-10-26] MEDS: BETAPACE PO SCH ×2 (08:58→20:38)
[2016-10-26] MEDS: FLOMAX PO SCH (08:59)
[2016-10-26] MEDS: COZAAR PO SCH (08:59)
[2016-10-26] MEDS: COUMADIN PO SCH (17:04)
[2016-10-26] MEDS: LIPITOR PO SCH (20:38)
[2016-10-27 05:13] LABS: BASOPHILS % (AUTO) 0.2 % (0.0-3.0); EOSINOPHILS % (AUTO) 0.3 % (0.0-7.0); HEMATOCRIT 43.4 % (42.0-52.0); HEMOGLOBIN 14.6 g/dl (14.0-18.0); IMMATURE GRANULOCYTE % (AUTO) 0.6 % (0.0-5.0); LYMPHOCYTES # (AUTO) 2.7 K/uL (0.60-3.4); LYMPHOCYTES % (AUTO) 28.3 (10.0-50.0); MEAN CORPUSCULAR HEMOGLOBIN 30.9 pg (27.0-31.0); MEAN CORPUSCULAR HGB CONC 33.6 (31.8-35.4); MEAN CORPUSCULAR VOLUME 91.8 fl (80.0-94.0); MONOCYTES # (AUTO) 0.8 K/uL (0.4-2.0); MONOCYTES % (AUTO) 8.3 (0-10); NEUTROPHILS # (AUTO) 5.9 K/ul (2.0-6.9); NEUTROPHILS % (AUTO) 62.3; PLATELET COUNT 214 10^3/uL (140-440); RED BLOOD COUNT 4.73 10^6/ul (4.70-6.10); WHITE BLOOD COUNT 9.54 K/ul (4.2-10.2)
[2016-10-27 05:35] LABS: ALBUMIN 2.8 g/dL (3.4-5.0); ANION GAP 15.1; BILIRUBIN,TOTAL 0.58 mg/dL (0.00-1.20); BUN/CREATININE RATIO 27.14; CALCIUM 8.8 mg/dL (8.2-10.2); CREATININE 0.7 mg/dL (0.60-1.10); POTASSIUM 4.1 mmol/L (3.5-5.1); TOTAL PROTEIN 5.6 g/dL (5.8-8.1)
[2016-10-27] MEDS: HUMULIN R SUBCUT PRN ×4 (06:07→21:03)
[2016-10-27] MEDS: GLUCOPHAGE PO SCH ×2 (08:52→17:03)
[2016-10-27] MEDS: FLOMAX PO SCH (08:52)
[2016-10-27] MEDS: COZAAR PO SCH (08:52)
[2016-10-27] MEDS: BETAPACE PO SCH ×2 (08:52→20:21)
[2016-10-27] MEDS: PREDNISONE PO SCH ×2 (08:53→17:03)
[2016-10-27] MEDS: COUMADIN PO SCH (17:03)
[2016-10-27] MEDS: NORCO 5-325 PO PRN (19:45)
[2016-10-27] MEDS: LIPITOR PO SCH (20:21)
[2016-10-28 06:09] LABS: BASOPHILS % (AUTO) 0.2 % (0.0-3.0); EOSINOPHILS # (AUTO) 0.1 K/ul (0.0-0.7); EOSINOPHILS % (AUTO) 0.9 % (0.0-7.0); HEMATOCRIT 42.3 % (42.0-52.0); HEMOGLOBIN 14.3 g/dl (14.0-18.0); LYMPHOCYTES # (AUTO) 2.8 K/uL (0.60-3.4); LYMPHOCYTES % (AUTO) 25.9 (10.0-50.0); MEAN CORPUSCULAR HEMOGLOBIN 30.7 pg (27.0-31.0); MEAN CORPUSCULAR HGB CONC 33.8 (31.8-35.4); MEAN CORPUSCULAR VOLUME 90.8 fl (80.0-94.0); MONOCYTES # (AUTO) 0.7 K/uL (0.4-2.0); MONOCYTES % (AUTO) 6.8 (0-10); NEUTROPHILS % (AUTO) 65.2; PLATELET COUNT 229 10^3/uL (140-440); RED BLOOD COUNT 4.66 10^6/ul (4.70-6.10); WHITE BLOOD COUNT 10.73 K/ul (4.2-10.2)
[2016-10-28 06:20] LABS: PROTHROMBIN TIME 35.8 SEC (9.3-11.0)
[2016-10-28] MEDS: HUMULIN R SUBCUT PRN ×4 (06:40→21:04)
[2016-10-28 06:53] LABS: ALBUMIN 2.9 g/dL (3.4-5.0); ALBUMIN/GLOBULIN RATIO 0.97; ANION GAP 13.2; BILIRUBIN,TOTAL 0.61 mg/dL (0.00-1.20); BUN/CREATININE RATIO 24.67; CALCIUM 8.8 mg/dL (8.2-10.2); CREATININE 0.77 mg/dL (0.60-1.10); POTASSIUM 4.2 mmol/L (3.5-5.1); TOTAL PROTEIN 5.9 g/dL (5.8-8.1)
[2016-10-28] MEDS: FLOMAX PO SCH (08:30)
[2016-10-28] MEDS: COZAAR PO SCH (08:31)
[2016-10-28] MEDS: GLUCOPHAGE PO SCH ×2 (08:31→17:39)
[2016-10-28] MEDS: BETAPACE PO SCH ×2 (08:31→21:02)
[2016-10-28] MEDS ORDERED: COZAAR PO SCH (09:00)
--- NOTE | 2016-10-28 11:31 | PCM.PROG ---
Attending Provider: ATTENDING PROVIDER: Dr. ROBB BROWER DATE OF SERVICE: 10/28/16 SUBJECTIVE: This 80 year old WHITE/ M was hospitalized 10/22/16 was seen with the nurse practitioner. The patient's condition has improved and he is feeling a lot better and wants to go home but the nephew, who is the power of litigation attorney for health, has come from [place]. The patient was referred for swing bed for physical therapy. Note: The patient does not fit the criteria for swing bed in [facility]. The nephew, who is the power of litigation attorney for health and the patient are both agreeable now to go to the snf for at least 2 to 3 weeks for further physical therapy. The patient complains of lower back pain, rates it as a 6 on a scale of 1 to 10. He has been walking with a walker and he requires help with transfers. He is alert and oriented to person and place. REVIEW OF SYSTEMS: CONSTITUTIONAL: No night sweats. No fatigue, malaise, lethargy. No fever or chills. HEENT: Eyes: No visual changes. No eye pain. No eye discharge. ENT: No runny nose. No epistaxis. No sinus pain. No odynophagia. No congestion. RESPIRATORY: No cough, no congestion. No hemoptysis. CARDIOVASCULAR: No angina symptoms. No CHF symptoms. No atypical chest pain for CAD. No palpitations. No shortness of breath. GASTROINTESTINAL: No abdominal pain. No nausea or vomiting. No diarrhea or constipation. No hematemesis. No hematochezia. GENITOURINARY: No urgency. No frequency. No dysuria. No hematuria. No obstructive symptoms. No discharge. No pain. No significant abnormal bleeding. MUSCULOSKELETAL: Back pain lower part. NEUROLOGICAL: No headache. No neck pain. No syncope. No seizures. No dizziness. PSYCHIATRIC: Not anxious. No depression. No suicidal thoughts. No homicidal thoughts. SKIN: No rash. No lesions. No wounds. ENDOCRINE: No unexplained weight loss. No weight gain. HEMATOLOGIC/LYMPHATIC: No anemia. No purpura. No petechiae. No prolonged or excessive bleeding. No palpable lymph nodes. PHYSICAL EXAMINATION: GENERAL: The patient is awake, alert, oriented to place and person sitting in chair in no distress. VITAL SIGNS: Temperature 97.3 F, Pulse 78, Respiratory Rate 16, BP 147/88, Pulse Ox 94%. Stable as mentioned by nurse practitioner. HEENT: Head normocephalic, atraumatic. Eyes: Extraocular muscles are intact. Pupils are equal, round and reactive to light and accommodation. Ears: No lesions. Nose appeared normal. Throat: No exudate or erythema. NECK: Supple. No JVD, no carotid bruit. No lymphadenopathy or thyromegaly. LUNGS: Clear to auscultation. Percussion note normal. Chest symmetrical. HEART: S1, S2, no S3. No murmurs. No cyanosis or clubbing. No ascites. Pulses: Dorsalis pedis and posterior tibial pulses +1 to +2 both sides. ABDOMEN: Soft. Non-tender. Bowel sounds active. No CVA tenderness. No mass felt. EXTREMITIES: No pedal edema. Full range of motion of all extremities, equal. NEUROLOGIC: No focal deficit. Cranial nerves II through XII are grossly intact. No headache, no double vision or headache. SKIN: Not dry. Intact. Turgor-normal. LYMPHATIC: No palpable lymph nodes/no lymphedema. MUSCULOSKELETAL: Normal joints with no swelling. Muscle tone is normal. LAB REVIEW: 10/28/16 06:06 10/28/16 06:06 10/28/16 06:06: WBC 10.73 H, RBC 4.66 L, Hgb 14.3, Hct 42.3, MCV 90.8, MCH 30.7 , MCHC 33.8, RDW Coeff of Tramaine 13.7, Plt Count 229, Immature Gran % (Auto) 1.0, Neut % (Auto) 65.2, Lymph % (Auto) 25.9, [place] % (Auto) 6.8, Eos % (Auto) 0.9, Baso % (Auto) 0.2, Immature Gran # (Auto) 0.1, Neut # 7.0 H, Lymph # 2.8, [place]endleton # 0.7, Eos # 0.1, Baso # 0.0, PT 35.8 H, INR 3.48, Sodium 140, Potassium 4.2, Chloride 101, Carbon Dioxide 30, Anion Gap 13.2, BUN 19 H, Creatinine 0.77, Estimated GFR (MDRD) 98.00, BUN/Creatinine Ratio 24.67, Glucose 243 H, Calcium 8.8, Total Bilirubin 0.61, AST 13 L, ALT 24, Alkaline Phosphatase 61, Total Protein 5.9, Albumin 2.9 L, Globulin 3.0, Albumin/Globulin Ratio 0.97, TSH 1.511 , Free T4 0.98 ASSESSMENT: 1. Acute back pain 2. L3 compression fracture 3. Diabetes mellitus Type 2 with periods of hypoglycemia 4. Hypertension improving 5. Increased INR. PLAN: 1. Hold Coumadin. INR 3.4, will monitor. 2. Increase Cozaar 100 mg daily 3. Up and about with assist 4. Will reevaluate the patient for possible swing bed placement 5. Fall precautions 6. Blood pressure will be monitored. Plan and coordination of the patient's care discussed in the presence of Gum Scoring Machine Operator and nurse. CONDITION: Stable SCRIBED BY: LISA HOLGUIN Cosmetologist scribed while in presence of service performed by Dr. ROBB BROWER/NEMO BARBER/PENNIE on 10/28/16 ([id number])
[2016-10-28] MEDS: LIPITOR PO SCH (21:03)
[2016-10-29 04:36] LABS: BASOPHILS % (AUTO) 0.4 % (0.0-3.0); EOSINOPHILS # (AUTO) 0.1 K/ul (0.0-0.7); EOSINOPHILS % (AUTO) 1.3 % (0.0-7.0); HEMATOCRIT 43.5 % (42.0-52.0); HEMOGLOBIN 14.7 g/dl (14.0-18.0); IMMATURE GRANULOCYTE % (AUTO) 1.5 % (0.0-5.0); LYMPHOCYTES # (AUTO) 2.7 K/uL (0.60-3.4); LYMPHOCYTES % (AUTO) 24.7 (10.0-50.0); MEAN CORPUSCULAR HEMOGLOBIN 31.1 pg (27.0-31.0); MEAN CORPUSCULAR HGB CONC 33.8 (31.8-35.4); MONOCYTES # (AUTO) 0.7 K/uL (0.4-2.0); MONOCYTES % (AUTO) 6.3 (0-10); NEUTROPHILS # (AUTO) 7.2 K/ul (2.0-6.9); NEUTROPHILS % (AUTO) 65.8; PLATELET COUNT 227 10^3/uL (140-440); RED BLOOD COUNT 4.73 10^6/ul (4.70-6.10); WHITE BLOOD COUNT 10.97 K/ul (4.2-10.2)
[2016-10-29 05:00] LABS: ALBUMIN 2.8 g/dL (3.4-5.0); ALBUMIN/GLOBULIN RATIO 0.93; ANION GAP 10.9; BILIRUBIN,TOTAL 0.79 mg/dL (0.00-1.20); BUN/CREATININE RATIO 20.73; CALCIUM 9.1 mg/dL (8.2-10.2); CREATININE 0.82 mg/dL (0.60-1.10); POTASSIUM 4.9 mmol/L (3.5-5.1); TOTAL PROTEIN 5.8 g/dL (5.8-8.1)
[2016-10-29] MEDS: HUMULIN R SUBCUT PRN ×2 (05:30→11:28)
[2016-10-29 07:34] LABS: PROTHROMBIN TIME 21.8 SEC (9.3-11.0)
[2016-10-29] MEDS: GLUCOPHAGE PO SCH (08:19)
[2016-10-29] MEDS: FLOMAX PO SCH (08:19)
[2016-10-29] MEDS: BETAPACE PO SCH (08:19)
[2016-10-29] MEDS: COZAAR PO SCH (08:19)
--- NOTE | 2016-10-29 10:20 | PCM.PROG ---
Attending Provider: ATTENDING PROVIDER: Dr. ROBB BROWER DATE OF SERVICE: 10/29/16 SUBJECTIVE: This 80 year old WHITE/ M was hospitalized 10/22/16. The patient is awake, alert, up and about to chair. The patient had a meeting with Cammy Decker this morning for detention screening. The plan is to discharge to [facility] for rehabilitation, waiting for a bed. REVIEW OF SYSTEMS: CONSTITUTIONAL: No night sweats. No fatigue, malaise, lethargy. No fever or chills. HEENT: Eyes: No visual changes. No eye pain. No eye discharge. ENT: No runny nose. No epistaxis. No sinus pain. No odynophagia. No congestion. RESPIRATORY: No cough, no congestion. No hemoptysis. CARDIOVASCULAR: No angina symptoms. No CHF symptoms. No atypical chest pain for CAD. No palpitations. No shortness of breath. GASTROINTESTINAL: No abdominal pain. No nausea or vomiting. No diarrhea or constipation. No hematemesis. No hematochezia. GENITOURINARY: No urgency. No frequency. No dysuria. No hematuria. No obstructive symptoms. No discharge. No pain. No significant abnormal bleeding. MUSCULOSKELETAL: No musculoskeletal pain; no joint swelling. NEUROLOGICAL: Awake, alert, oriented to time, place and person. No headache. No neck pain. No syncope. No seizures. No dizziness. PSYCHIATRIC: Not anxious. No depression. No suicidal thoughts. No homicidal thoughts. SKIN: No rash. No lesions. No wounds. ENDOCRINE: No unexplained weight loss. No weight gain. HEMATOLOGIC/LYMPHATIC: No anemia. No purpura. No petechiae. No prolonged or excessive bleeding. No palpable lymph nodes. PHYSICAL EXAMINATION: GENERAL: The patient is awake, alert and oriented in no distress. VITAL SIGNS: Temperature 97.3 F, Pulse 78, Respiratory Rate 20, BP 153/87, Pulse Ox 93% HEENT: Head normocephalic, atraumatic. Eyes: Extraocular muscles are intact. Pupils are equal, round and reactive to light and accommodation. Ears: No lesions. Nose appeared normal. Throat: No exudate or erythema. NECK: Supple. No JVD, no carotid bruit. No lymphadenopathy or thyromegaly. LUNGS: Decreased breath sounds, clear to auscultation. Percussion note normal. Chest symmetrical. HEART: S1, S2, no S3. No murmurs. No cyanosis or clubbing. No ascites. Pulses: Dorsalis pedis and posterior tibial pulses +1 to +2 both sides. ABDOMEN: Soft. Non-tender. Bowel sounds active. No CVA tenderness. No mass felt. EXTREMITIES: No edema. Full range of motion of all extremities, equal. NEUROLOGIC: No focal deficit. Cranial nerves II through XII are grossly intact. No headache, no double vision or headache. SKIN: Not dry. Intact. Turgor-normal. LYMPHATIC: No palpable lymph nodes/no lymphedema. MUSCULOSKELETAL: Normal joints with no swelling. Muscle tone is normal. LAB REVIEW: 10/29/16 04:33 10/29/16 04:33 10/29/16 04:33: WBC 10.97 H, RBC 4.73, Hgb 14.7, Hct 43.5, MCV 92.0, MCH 31.1 H , MCHC 33.8, RDW Coeff of Tramaine 13.9, Plt Count 227, Immature Gran % (Auto) 1.5, Neut % (Auto) 65.8, Lymph % (Auto) 24.7, [place] % (Auto) 6.3, Eos % (Auto) 1.3, Baso % (Auto) 0.4, Immature Gran # (Auto) 0.2, Neut # 7.2 H, Lymph # 2.7, [place] # 0.7, Eos # 0.1, Baso # 0.0, Sodium 140, Potassium 4.9, Chloride 101, Carbon Dioxide 33 H, Anion Gap 10.9, BUN 17, Creatinine 0.82, Estimated GFR (MDRD) 91.00, BUN/Creatinine Ratio 20.73, Glucose 212 H, Calcium 9.1, Total Bilirubin 0.79, AST 9 L, ALT 19, Alkaline Phosphatase 61, Total Protein 5.8, Albumin 2.8 L , Globulin 3.0, Albumin/Globulin Ratio 0.93 10/29/16 04:15: PT 21.8 H D, INR 2.12 ASSESSMENT: 1. Acute compression fracture/back pain 2. Hypertension 3. Diabetes mellitus, Type 2 4. Acute dementia PLAN: 1. Repeat PT and INR today 2. Will continue to hold Coumadin, results pending 3. Will monitor blood pressure 4. Anticipate discharge to [facility] pending available bed Plan and coordination of the patient's care discussed in the presence of Retail Management Keyholder and nurse. CONDITION: Stable SCRIBED BY: LISA HOLGUIN Commercial Artist scribed while in presence of service performed by Dr. ROBB BROWER/NEMO BARBER APRN on 10/29/16 ([id number])
[2016-10-29] MEDS: NORCO 5-325 PO PRN (10:43)
--- NOTE | 2016-10-29 11:02 | DS ---
DATE OF SERVICE: 10/29/16 FINAL DIAGNOSES: 1. ACUTE L3 COMPRESSION FRACTURE 2. BACK PAIN 3. DIABETES MELLITUS TYPE 2 4. MILD DEMENTIA 5. HYPERTENSION 6. CORONARY ARTERY DISEASE STATUS POST BYPASS SURGERY, 1995 7. PULMONARY EMBOLISM, 2011 AT [facility] V/S AT DISCHARGE: Temperature 97.2, pulse 74, respirations 16, BP 159/80, pulse ox 96% on room air. DISCHARGE INSTRUCTIONS: Followup appointment with Dr. Varghese in approximately one week during [facility]. MEDICATIONS AT DISCHARGE/NEW PRESCRIPTIONS: The patient will be discharged home with: 1. Lortab 5/325 mg one p.o. b.i.d. p.r.n. for pain #15 with no refill; 2. Prednisone 10 mg p.o. b.i.d. times 5 days; 3. Regular home medications include Sotalol 40 mg p.o. b.i.d.; 4. Lipitor 40 mg p.o. daily; 5. Coumadin 6 mg p.o. daily; 6. Glucophage 1,000 mg p.o. b.i.d.; 7. Insulin, Lantus 55 units b.i.d.; 8. Losartan 50 mg p.o. daily; 9. Flomax 0.4 mg p.o. daily. DIET INSTRUCTIONS: The patient is to go home on ADA diet. ACTIVITY: The patient is to increase rest at home. Up and about as tolerated with fall precautions. SMOKING: N/A HOSPITAL COURSE: The patient was admitted to [facility] after arriving in the emergency room. He was found at home after fall and was unsure if he had hit his head or how long he had been on the floor. When the ambulance arrived, his blood sugar was 25. The patient was subsequently admitted. MRI and x-ray showed acute L3 compression fracture. He was first placed on [place], which he tolerated with the pain. It was first thought that he was allergic although he tolerated five doses with no problem. He was then started on Toradol 30 mg t.i.d. The patient was placed on routine telemetry orders with fall precautions. He remained in sinus rhythm. He had Accu-Checks with sliding scale coverage. Neuro-Checks q.2hr. He had an ADA diet. He was on room air. Vital signs remained stable during the course of this stay. The patient did have some episodes of confusion and forgetfulness during the time in the hospital but otherwise was alert and oriented. Upon arriving at the hospital, his blood sugar had increased. He has not had any episodes of hypoglycemia since being admitted. His sugars have actually run high, 200 to 300. For the past two days, the patient has not reported any pain. The Toradol has been covering his pain. He has been up and about with assistance of one and a walker. A physical therapy evaluation was conducted and they thought he should resolve on his own and did not need any physical therapy. The patient was encouraged to be put in a swing bed at the hospital but declined. The patient was also recommended that he stay over the weekend and patient declined stating he would like to go home today against medical advice. If the patient goes home against medical advice, he is in stable condition and will be discharged home with [place] 5/325 p.o. b.i.d. p.r.n. as well as Prednisone 10 mg p.o. b.i.d. He will be instructed to followup in our office on Friday or Friday. It is unsure whether he will leave today; is dependent on a ride. LABS AT TIME OF DISCHARGE: Hemoglobin 14.1, hematocrit 41.6, platelets 266, white count 14.8. Glucose 276, sodium 142, potassium 4.3, BUN 26 and creatinine 0.77. Discharge is dependent on the patient leaving against medical advice today. ADDENDUM PER NEMO BARBER APRN The patient will be discharged to [facility] for physical therapy treatment and evaluation. We will follow him in approximately one week during [facility]. MEDICATION CHANGES: 1. Cozaar was increased to 100 mg p.o. daily 2. Coumadin was decreased to 5 mg p.o. daily 3. Acetaminophen 325 mg one to two tablets p.o. q.6hr p.r.n. for pain 4. [place] 5/325 b.i.d. p.r.n. for pain PLAN: 1. Will do CBC with diff and CMP in one week and then q.3months 2. PT/INR was 2.8 today, will repeat on 10/31/16. longterm is to call Dr. Varghese's office for further instructions. 3. Will do Accu-Checks before meals, cover with sliding scale insulin per our protocol. 4. Activity - he is up to dining room for all meals 5. PT/OT evaluate and treat 6. Vital signs daily The patient is discharged in stable condition today, 10/29/16 and has agreed to go to [facility]. He has finished his course of Prednisone. Labs are all stable. TIME SPENT: More than 60 minutes. MTDD
--- NOTE | 2016-10-29 11:40 | PN ---
DATE OF SERVICE: 10/26/16 SUBJECTIVE: 80-year-old white male hospitalized with L1 acute compression fracture which was mild. The patient's pain practically has subsided. He is sitting in the chair, is up and about. No neurological deficit on physical exam. As usual, he wants to go home but needs Physical Therapy to get his legs and back straightened. He was explained about compression fractures and causes for it. The patient's BMI is 33, strongly advised to lose weight and advised to watch his diet and take his medications on a regular basis. His other problems on hospitalization were severe hypoglycemia for which he was taken to one of the [facility]. REVIEW OF SYSTEMS: CONSTITUTIONAL: No night sweats. No fatigue, malaise, lethargy. No fever or chills. HEENT: Eyes: No visual changes. No eye pain. No eye discharge. ENT: No runny nose. No epistaxis. No sinus pain. No sore throat. No odynophagia. No congestion. RESPIRATORY: No cough, no congestion. No hemoptysis. CARDIOVASCULAR: No angina symptoms. No CHF symptoms. No atypical chest pain for CAD. No palpitations. No shortness of breath. GASTROINTESTINAL: No abdominal pain. No nausea or vomiting. No diarrhea or constipation. No hematemesis. No hematochezia. GENITOURINARY: No urgency. No frequency. No dysuria. No hematuria. No obstructive symptoms. No discharge. No pain. No significant abnormal bleeding. MUSCULOSKELETAL: No musculoskeletal pain; no joint swelling. NEUROLOGICAL: No headache. No neck pain. No syncope. No seizures. No dizziness. PSYCHIATRIC: Not anxious. No depression. No suicidal thoughts. No homicidal thoughts. SKIN: No rash. No lesions. No wounds. ENDOCRINE: No unexplained weight loss. No weight gain. HEMATOLOGIC/LYMPHATIC: No anemia. No purpura. No petechiae. No prolonged or excessive bleeding. No palpable lymph nodes. PHYSICAL EXAMINATION: GENERAL: The patient is oriented to person and place. VITAL SIGNS: Temperature 97, pulse 64, respiratory rate 20, BP 147/78, pulse ox 96%. HEENT: Head normocephalic, atraumatic. Eyes: Extraocular muscles are intact. Pupils are equal, round and reactive to light and accommodation. Ears: No lesions. Nose appeared normal. Throat: No exudate or erythema. NECK: Supple. No JVD, no carotid bruit. No lymphadenopathy or thyromegaly. LUNGS: Decreased breath sounds. Clear to auscultation. Percussion note normal. Chest symmetrical. HEART: S1, S2, no S3. No murmurs. No cyanosis or clubbing. No ascites. Pulses: Dorsalis pedis and posterior tibial pulses +1 to +2 both sides. ABDOMEN: Soft. Nontender. Bowel sounds active. No CVA tenderness. No mass felt. EXTREMITIES: No edema. Full range of motion of all extremities, equal. NEUROLOGIC: No focal deficit. Cranial nerves II through XII are grossly intact. No headache, no double vision or headache. SKIN: Not dry. Intact. Turgor - normal. LYMPHATIC: No palpable lymph nodes/no lymphedema. MUSCULOSKELETAL: Normal joints with no swelling. Muscle tone is normal. ASSESSMENT/PLAN: 1. COMPRESSION FRACTURE WITH BACK PAIN, SEEMS TO HAVE SUBSIDED. THE PAIN IS UNDER CONTROL. WILL TRY TO USE MINIMAL AMOUNT OF NARCOTICS. THE PATIENT USE TO BE ON A HIGHER DOSE. WILL CONTINUE TORADOL IV FOR NOW. THE PATIENT IS ALREADY ON SOTALOL, ATORVASTATIN, WARFARIN. THE INR IS 1.69. THE PATIENT IS ON SLIDING SCALE AND IN HIS OWN WORDS USED AN ANTIINFLAMMATORY AND ALSO FOR HIS BRONCHITIS TYPE OF SYMPTOMS. WILL DISCONTINUE IT IN THE MORNING. NORCO 5 MG Q.8 FOR PAIN. WILL SEE HOW MANY NORCO IT TAKES DURING THE DAYTIME. THE PATIENT WAS ON 55 UNITS TWICE A DAY. 2. THE PATIENT NEEDS TO HAVE SOMEONE WITH HIM ALL THE TIME EXCEPT FOR MAYBE NIGHTTIME. THE NEPHEW IS ON THE WAY FROM [place] AND WAS THE POWER OF PROSTHETIC AIDE FOR HEALTH. TIME SPENT: More than 30 minutes. Plan and coordination of the patient's care discussed in the presence of nurse. CAROLINE
--- NOTE | 2016-10-29 11:45 | PN ---
DATE OF SERVICE: 10/27/16 SUBJECTIVE: 80-year-old white male hospitalized with back pain and also hypoglycemia. The patient's back pain is a lot better. He is able to pull himself up with help and then able to walk with walker with practically no pain. The patient's neurological status is normal. He is moving all his extremities. Spine is nontender. REVIEW OF SYSTEMS: CONSTITUTIONAL: No night sweats. No fatigue, malaise, lethargy. No fever or chills. HEENT: Eyes: No visual changes. No eye pain. No eye discharge. ENT: No runny nose. No epistaxis. No sinus pain. No sore throat. No odynophagia. No congestion. RESPIRATORY: No cough, no congestion. No hemoptysis. CARDIOVASCULAR: No angina symptoms. No CHF symptoms. No atypical chest pain for CAD. No palpitations. No shortness of breath. No PND, no orthponeal. GASTROINTESTINAL: No abdominal pain. No nausea or vomiting. No diarrhea or constipation. No hematemesis. No hematochezia. GENITOURINARY: No urgency. No frequency. No dysuria. No hematuria. No obstructive symptoms. No discharge. No pain. No significant abnormal bleeding. MUSCULOSKELETAL: No musculoskeletal pain; no joint swelling. NEUROLOGICAL: No headache. No neck pain. No syncope. No seizures. No dizziness. PSYCHIATRIC: Not anxious. No depression. No suicidal thoughts. No homicidal thoughts. SKIN: No rash. No lesions. No wounds. ENDOCRINE: No unexplained weight loss. No weight gain. HEMATOLOGIC/LYMPHATIC: No anemia. No purpura. No petechiae. No prolonged or excessive bleeding. No palpable lymph nodes. PHYSICAL EXAMINATION: GENERAL: The patient is oriented to time, place and person. VITAL SIGNS: Temperature 96, pulse 70, respiratory rate 16, BP 150/80, pulse ox 94%. HEENT: Head normocephalic, atraumatic. Eyes: Extraocular muscles are intact. Pupils are equal, round and reactive to light and accommodation. Ears: No lesions. Nose appeared normal. Throat: No exudate or erythema. NECK: Supple. No JVD, no carotid bruit. No lymphadenopathy or thyromegaly. LUNGS: Decreased breath sounds. Clear to auscultation. Percussion note normal. Chest symmetrical. HEART: S1, S2, no S3. No murmurs. No cyanosis or clubbing. No ascites. Pulses: Dorsalis pedis and posterior tibial pulses +1 to +2 both sides. ABDOMEN: Soft. Nontender. Bowel sounds active. No CVA tenderness. No mass felt. EXTREMITIES: No edema. Full range of motion of all extremities, equal. NEUROLOGIC: No focal deficit. Cranial nerves II through XII are grossly intact. No headache, no double vision or headache. SKIN: Not dry. Intact. Turgor - normal. LYMPHATIC: No palpable lymph nodes/no lymphedema. MUSCULOSKELETAL: Normal joints with no swelling. Muscle tone is normal. LABS: Hemoglobin 14.6, hematocrit 43, WBC 9,500, normal differential. Creatinine 0.7, BUN 19, potassium 4.2, INR 1.69. ASSESSMENT: 1. BACK PAIN WITH ACUTE COMPRESSION FRACTURE, L3. THE PATIENT HAS A COUPLE OF OLD COMPRESSION FRACTURES. 2. HISTORY OF HYPOGLYCEMIA LIKELY NONCOMPLIANCE. 3. DEMENTIA, EARLY. 4. HYPERTENSION. 5. DIABETES MELLITUS WITH HYPOGLYCEMIA. 6. CARDIAC ARRHYTHMIAS. 7. DYSLIPIDEMIA. 8. BPH. PLAN: 1. Continue [place] as needed. 2. Will check INR. 3. Losartan will be increased to 100 mg. CONDITION: Stable. TIME SPENT: More than 30 minutes. Plan and coordination of the patient's care discussed in the presence of nurse. CAROLINE
--- NOTE | 2016-10-29 13:01 | PN ---
DATE OF SERVICE: 10/25/16 This is a 80-year-old white male who was talked to by the Inverform Machine Operator, Nurse Practitioner and other nursing staff members for him to stay so we can do physical therapy because he needs that. He decided to sign himself out but ultimately while he was waiting for someone to pick him up his nephew, who is the real power of infant babysitter for health called from [place] that he is on his way to [facility] and to keep him as he agreed that the patient may need physical therapy. I went and talked to the patient and by then the nephew had already talked to Bebo that he is leaving and wants him to stay in the hospital so the patient consented to stay in the hospital until the nephew arrives then discussion would take place for what to do again. The recommendations stand that the patient may need physical therapy, official evaluation and would be transferred to Swing Bed. The patient's back pain seems to be a lot better. The patient is able to walk with a walker. His neurological status is normal. Spine is nontender. He seems to be oriented to place and person at times to time. The nephew was told that the patient wanted to go home and that is when he told him not to go home and stay in the hospital until he comes. CAROLINE
--- NOTE | 2016-10-29 13:42 | PN ---
DATE OF SERVICE: 10/25/16 SUBJECTIVE: The patient was laying in bed this morning alert and oriented, stated he was having just mild amount of back pain, had slept well through the night. He has had a good appetite. He stated that he would like to go home today. It was discussed with him that we would see about a possible swing bed due to the back pain. He has been up and about with assistance of one and the use of a walker. Again, the patient was insistent about going home. He was in no distress. REVIEW OF SYSTEMS: CONSTITUTIONAL: No night sweats. No fatigue, malaise, lethargy. No fever or chills. HEENT: Eyes: No visual changes. No eye pain. No eye discharge. ENT: No runny nose. No epistaxis. No sinus pain. No sore throat. No odynophagia. No congestion. RESPIRATORY: No cough, no congestion. No hemoptysis. CARDIOVASCULAR: No angina symptoms. No CHF symptoms. No atypical chest pain for CAD. No palpitations. No shortness of breath. GASTROINTESTINAL: No abdominal pain. No nausea or vomiting. No diarrhea or constipation. No hematemesis. No hematochezia. GENITOURINARY: No urgency. No frequency. No dysuria. No hematuria. No obstructive symptoms. No discharge. No pain. No significant abnormal bleeding. MUSCULOSKELETAL: Mild low back pain. NEUROLOGICAL: No headache. No neck pain. No syncope. No seizures. No dizziness. PSYCHIATRIC: Not anxious. No depression. No suicidal thoughts. No homicidal thoughts. SKIN: No rash. No lesions. No wounds. ENDOCRINE: No unexplained weight loss. No weight gain. HEMATOLOGIC/LYMPHATIC: No anemia. No purpura. No petechiae. No prolonged or excessive bleeding. No palpable lymph nodes. PHYSICAL EXAMINATION: VITAL SIGNS: Temperature 97.2, Pulse 74, BP 159/80, 02 sat 96/NC on room air. HEENT: Head normocephalic, atraumatic. Eyes: Extraocular muscles are intact. Pupils are equal, round and reactive to light and accommodation. Ears: No lesions. Nose appeared normal. Throat: No exudate or erythema. NECK: Supple. No JVD, no carotid bruit. No lymphadenopathy or thyromegaly. LUNGS: Clear and equal with bilateral decreased breath sounds. Percussion note normal. Chest symmetrical. HEART: S1, S2, no murmur. No cyanosis or clubbing. No ascites. Pulses: Dorsalis pedis and posterior tibial pulses +1 to +2 both sides. ABDOMEN: Soft. Nontender. Bowel sounds active. No CVA tenderness. No mass felt. EXTREMITIES: Lower extremities had no edema. NEUROLOGIC: Alert and oriented. No focal deficit. Cranial nerves II through XII are grossly intact. No headache, no double vision or headache. SKIN: Not dry. Intact. Turgor - normal. LYMPHATIC: No palpable lymph nodes/no lymphedema. MUSCULOSKELETAL: Normal joints with no swelling. Muscle tone is normal. ASSESSMENT: 1. L3 acute compression fracture with mild low back pain. 2. Diabetes mellitus type 2. 3. Dementia. 4. History of DVT. 5. Hypertension. PLAN: 1. Encourage the patient to stay in the hospital over the weekend. We will plan on getting him in a swing bed. 2. PT treatment and evaluation was ordered today. 3. Stop Toradol 30 mg t.i.d. as scheduled and start Toradol 30 mg b.i.d. p.r.n. as well as Lortab 5/325 mg t.i.d. p.r.n. The patient is to ask for medications. Yesterday we had added back his Glucophage. We will continue with sliding scale insulin. 4. Fall precautions as continued. Again, we encouraged him to get up and about today in order to assess his pain to see how he was when he was moving as the patient has mostly been in bed. Discharge is dependent on patient. TIME SPENT: More than [address] BROWER: This is a 80-year-old white male who was talked to by the Oyster Culturist, Nurse Practitioner and other nursing staff members for him to stay so we can do physical therapy because he needs that. He decided to sign himself out but ultimately while he was waiting for someone to pick him up, his nephew, who is the real power of v belt coverer for health, called from [place] to say that he is on his way to [facility] and to keep him as he agreed that the patient may need physical therapy. I went and talked to the patient and by then the nephew had already talked to Bebo that he is leaving and wants him to stay in the hospital so the patient consented to stay in the hospital until the nephew arrives then discussion would take place for what to do again. The recommendations stand that the patient may need physical therapy, official evaluation and would be transferred to Swing Bed. The patient's back pain seems to be a lot better. The patient is able to walk with a walker. His neurological status is normal. Spine is nontender. He seems to be oriented to place and person at times to time. The nephew was told that the patient wanted to go home and that is when he told him not to go home and stay in the hospital until he comes. Plan and coordination of the patient's care discussed in the presence of nurse. CAROLINE
[2016-10-29 14:59] VITALS: BP 82/58; TEMP 97.7
--- NOTE | 2016-10-30 07:54 | PN ---
DATE OF SERVICE: 10/28/16 SUBJECTIVE: The patient is a 80 year old white male was seen with nurse practitioner. The patient's condition has improved and he feeling a lot better and he wants to go home but the nephew who is the power of securities attorney for health has come from [place]. The patient was referred for the swing bed for physical therapy. Note the patient does not fit the criteria for swing bed in [facility]. Nephew who is the power securities attorney for health and the patient they are both agreeable now to go to the [facility] for at least 2-3 weeks for further physical therapy. REVIEW OF SYSTEMS: CONSTITUTIONAL: No night sweats. No fatigue, malaise, lethargy. No fever or chills. HEENT: Eyes: No visual changes. No eye pain. No eye discharge. ENT: No runny nose. No epistaxis. No sinus pain. No sore throat. No odynophagia. No congestion. RESPIRATORY: No cough, no congestion. No hemoptysis. CARDIOVASCULAR: No angina symptoms. No CHF symptoms. No atypical chest pain for CAD. No palpitations. No shortness of breath. GASTROINTESTINAL: No abdominal pain. No nausea or vomiting. No diarrhea or constipation. No hematemesis. No hematochezia. GENITOURINARY: No urgency. No frequency. No dysuria. No hematuria. No obstructive symptoms. No discharge. No pain. No significant abnormal bleeding. MUSCULOSKELETAL: No musculoskeletal pain; no joint swelling. Discomfort in lower part of the back. NEUROLOGICAL: No headache. No neck pain. No syncope. No seizures. No dizziness. PSYCHIATRIC: Not anxious. No depression. No suicidal thoughts. No homicidal thoughts. SKIN: No rash. No lesions. No wounds. ENDOCRINE: No unexplained weight loss. No weight gain. HEMATOLOGIC/LYMPHATIC: No anemia. No purpura. No petechiae. No prolonged or excessive bleeding. No palpable lymph nodes. PHYSICAL EXAMINATION: GENERAL: The patient is oriented to place and person. VITAL SIGNS: Stable as mentioned by nurse practitioner. HEENT: Head normocephalic, atraumatic. Eyes: Extraocular muscles are intact. Pupils are equal, round and reactive to light and accommodation. Ears: No lesions. Nose appeared normal. Throat: No exudate or erythema. NECK: Supple. No JVD, no carotid bruit. No lymphadenopathy or thyromegaly. LUNGS: Clear to auscultation. Percussion note normal. Chest symmetrical. HEART: S1, S2, no S3. No murmurs. No cyanosis or clubbing. No ascites. Pulses: Dorsalis pedis and posterior tibial pulses +1 to +2 both sides. ABDOMEN: Soft. Nontender. Bowel sounds active. No CVA tenderness. No mass felt. EXTREMITIES: No edema. Full range of motion of all extremities, equal. NEUROLOGIC: No focal deficit. Cranial nerves II through XII are grossly intact. No headache, no double vision or headache. SKIN: Not dry. Intact. Turgor - normal. LYMPHATIC: No palpable lymph nodes/no lymphedema. MUSCULOSKELETAL: Normal joints with no swelling. Muscle tone is normal. ASSESSMENT: 1. 2. 3. 4. 5. PLAN: 1. The patient's Cozaar dose has been increased. 2. Blood pressure will be monitored 3. INR is 3.4 will monitor that CONDITION: Stable TIME SPENT: More than 30 minutes. Plan and coordination of the patient's care discussed in the presence of nurse. CAROLINE
== END 2016-10-29 16:35 | disposition other institution (70) | DRG 552 ==
LOC: ED 15:32 → MEDSURG B 17:11
PROVIDERS: ADMIT Internal Medicine; ATTEND Internal Medicine
DX: S32.030A Wedge compression fracture of third lumbar vertebra, initial encounter for closed fracture (principal); E16.2 Hypoglycemia, unspecified; E11.9 Type 2 diabetes mellitus without complications; F03.90 Unspecified dementia, unspecified severity, without behavioral disturbance, psychotic disturbance, mood disturbance, and anxiety; I25.10 Atherosclerotic heart disease of native coronary artery without angina pectoris; I10 Essential (primary) hypertension; M47.9 Spondylosis, unspecified; I49.9 Cardiac arrhythmia, unspecified; N40.0 Benign prostatic hyperplasia without lower urinary tract symptoms; R79.1 Abnormal coagulation profile; E78.5 Hyperlipidemia, unspecified; W19.XXXA Unspecified fall, initial encounter; Y92.009 Unspecified place in unspecified non-institutional (private) residence as the place of occurrence of the external cause; Z86.711 Personal history of pulmonary embolism; Z91.19 Patient's noncompliance with other medical treatment and regimen; Z79.01 Long term (current) use of anticoagulants; Z79.84 Long term (current) use of oral hypoglycemic drugs; Z79.899 Other long term (current) drug therapy; Z86.718 Personal history of other venous thrombosis and embolism
CPT/HCPCS: 36415; 80053; 82962; 84439; 84443; 85025; 85610; 85730; 93005; 93010; 96374; 99284

== ENCOUNTER 2016-11-11 20:00 | Inpatient (IN) ==
--- NOTE | 2016-11-11 20:47 | CT ---
EXAM: CT BRAIN HISTORY: Fall TECHNIQUE: CT brain without intravenous contrast. 5-mm axial sections with Reformations. COMPARISON: 04/01/2016 FINDINGS: There is generalized age-related atrophy. Moderate chronic microvascular ischemic change is suggest ed. There is early basil ganglia calcification. These findings are stable. Brain otherwise is unre markable without distinct evidence of hemorrhage or large vessel distribution recent ischemic infarc tion. There is no suggestion of acute hydrocephalus or subdural fluid collection. No mass or mass effect. Cranium is within normal limits. Mastoid air cells are aerated. The visualized paranasal sinuses are clear. IMPRESSION: No acute intracranial process. No skull fracture.
--- NOTE | 2016-11-11 21:13 | CT ---
EXAM: CT of the cervical spine without contrast. HISTORY: Fall. Pain. COMPARISON: None. TECHNIQUE: Contiguous axial images were obtained through the cervical spine. Sagittal and coronal reformats were reviewed. No contrast. FINDINGS: There is normal curvature and alignment. The soft tissues are unremarkable. There is so me motion artifact which limits evaluation of the soft tissues. Carotid artery calcifications are s een. There are some pleural blebs in the lung apices. C2-3: No spinal canal or neural foramen. Mild uncovertebral hypertrophy. C3-4: Bilateral uncovertebral hypertrophy. Posterior osteophyte disc complex. Mild left neural fo ramen narrowing. C4-5: Disc narrowing. Posterior osteophyte disc complex. Bilateral uncovertebral hypertrophy, lef t greater right. Left neural foramen narrowing. C5-6: Disc narrowing. Right uncovertebral hypertrophy. Right neural foramen narrowing. C6-7: Posterior osteophyte disc complex. Bilateral neural foramen narrowing, left greater right. IMPRESSION: 1. No acute fractures. 2. Diffuse degenerative disc disease and degenerative joint disease.
--- NOTE | 2016-11-11 21:14 | CT ---
Exam: CT thoracic spine without contrast History: Fall with pain Technique: [address] thoracic spine with multiplanar reformations FINDINGS: The thoracic spine shows normal alignment. Vertebral body height is maintained. No frac ture lines are suspicious bony lesions. Multilevel anterior plate spondylosis. Superior endplate c oncavity deformity of L1 with chronic features. Multilevel low grade Schmorl's nodes in the thoraci c spine. Incidental moderate size hiatus hernia within the field of study. Impression: 1. No acute findings of the thoracic spine
--- NOTE | 2016-11-11 21:16 | CT ---
EXAM: CT LUMBAR SPINE HISTORY: Fall, back pain TECHNIQUE: CT lumbar spine without contrast. 3-mm axial sections. Coronal and sagittal reformatio ns. COMPARISON: 10/22/2016 FINDINGS: Diffuse demineralization. Redemonstration of multilevel vertebral body compression fractures, acute at L3 level. These are stable since the recent study. No new injuries are seen. There is diffuse severe degenerative disc and facet disease. Sacroiliac joints are intact. The degenerative changes lead to multilevel central canal and neural foraminal stenosis probably most apparent at L3/L4 (sev ere, central canal). There is no paraspinal fluid collection or hematoma. Atherosclerotic disease and sigmoid diverticulosis is noted. IMPRESSION: 1. Redemonstration of multilevel vertebral body compression fractures, acute at L3 level. These ar e stable since the recent study. No new injuries are seen. 2. Diffuse degenerative disc and facet disease.
--- NOTE | 2016-11-11 21:16 | CT ---
EXAM: CT of the pelvis without contrast. HISTORY: Fall. Pain. COMPARISON: Lumbar spine dated 10/22/2016 TECHNIQUE: Contiguous axial images were obtained through the bony pelvis. Sagittal and coronal ref ormats were reviewed. FINDINGS: There are no acute or healing fractures. There are no lytic or blastic lesions. There i s mild osteopenia. Joint narrowing and osteophyte formation is seen in both hips. There are no ero sive changes. There is no joint effusion. Disc narrowing and vacuum disc phenomenon is seen at L5 S1. There is a cortical irregularity in the inferior plate of L4 which is unchanged from prior stud y. Heavy vascular calcifications are seen. The visualized portion the bowel is unremarkable. Scat tered diverticula are seen without definite evidence of acute diverticulitis. The bladder is not we ll distended which limits evaluation. The prostate is not well seen. IMPRESSION: 1. No acute fractures. 2. Stable mild compression fracture of L4. 3. Degenerative changes spine and hips. 4. Heavy atherosclerotic disease of the aorta.
--- NOTE | 2016-11-11 21:23 | ED.PDOC ---
General ED Provider: Dr. NAOMI LEAVITT-ER Chief Complaint: Fall Stated Complaint: i fell and i am hurting Time Seen by Physician: 21:21 Mode of Arrival: Walk-In Information Source: Patient Exam Limitations: No limitations Primary Care Provider: ROBB FLAHERTY Nursing and Triage Documentation Reviewed and Agree: Yes Musculoskeletal Complaint Exam - Back Pain Complaint/Exam Mechanism of Injury: Reports: Trauma Onset/Duration: several hours Symptoms Are: Still present Timing: Constant Episodes Lasting: Hours Initial Severity: Moderate Location: Reports: Discrete Character: Reports: Dull, Aching Aggravating: Reports: Movements, Lifting, Bending, Walking Alleviating: Reports: None Associated Signs and Symptoms: Denies: Swelling, Redness, Bruising, Fever, Weakness, Numbness, Tingling, Abdominal pain, Flank pain, Bladder incontinence, Bowel incontinence, Weight loss, Pain with weight bearing Related History: Reports: Previous back injury AAA Risk Factors: Reports: None Cauda Equina Risk Factors: Reports: None Epidural Abcess Risk Factors: Reports: None Focal Tenderness: Yes Paraspinal Muscle Tenderness: Yes Paraspinal Muscle Spasm: No Scoliosis: No Lordosis: No Kyphosis: No SLR Test: Right Negative, Left Negative Hip Motion Testing Pain: Right Negative, Left Negative Focal Weakness: Present: None Focal Sensory Loss: Present: None Differential Diagnoses: Fracture, Herniated Disk, Strain, Sprain Review of Systems - Review Of Systems Constitutional: Reports: No symptoms Eyes: Reports: No symptoms Ears, Nose, Mouth, Throat: Reports: No symptoms Respiratory: Reports: No symptoms Cardiac: Reports: No symptoms GI: Reports: No symptoms : Reports: No symptoms Musculoskeletal: Reports: Back pain Skin: Reports: No symptoms Neurological: Reports: No symptoms Endocrine: Reports: No symptoms Hematologic/Lymphatic: Reports: No symptoms All Other Systems: Reviewed and Negative Past Medical History - Past Medical History Previously Healthy: No Endocrine: Reports: DM 2 Cardiovascular: Reports: Hypertension Respiratory: Reports: None Hematological: Reports: None Gastrointestinal: Reports: None Genitourinary: Reports: None Neuro/Psych: Reports: None Musculoskeletal: Reports: None Cancer: Reports: None - Surgical History General Surgical History: Reports: Appendectomy, Cholecystectomy, Tonsillectomy , CABG - Family History Family History: Reports: None - Social History Smoking Status: Former smoker Hx Substance Use: No Alcohol Screening: None Lives: With family Physical Exam - Physical Exam Appearance: Well-appearing, No pain distress, Well-nourished Pain Distress: Moderate Eyes: SATHYA, EOMI, Conjunctiva clear ENT: Ears normal, Nose normal, Oropharynx normal Neck: Supple Respiratory: Airway patent Cardiovascular: RRR, Pulses normal, No rub, No murmur GI/: Soft, Nontender, No masses, Bowel sounds normal, No Organomegaly Musculoskeletal: Normal strength, ROM intact, No edema, No calf tenderness Skin: Warm, Dry, Normal color Neurological: Sensation intact, Motor intact, Reflexes intact, Cranial nerves intact, Alert, Oriented Psychiatric: Affect appropriate, Mood appropriate Interpretation - Radiology Interpretation Radiology Interpretation By: Radiologist Radiology Results: Negative Exam Interpreted: CT Scan Physician Notification - Case Discussed Physician Notified: dr flaherty Time of Notification: 21:23 Critical Care Note - Critical Care Note Total Time (mins): 0 Course - Course Hematology/Chemistry: 11/11/16 21:40 11/11/16 21:40 Orders, Labs, Meds: Orders Category Date Time Status [facility] ADMISSION 11/11/16 21: 24 Completed EKG-(ED ONLY) Stat CARDIO 11/11/16 21:30 Completed ACCUCHECK (MED/SURG, SCU) [BLOOD GLUCOSE MONITORING] CARE 11/11/16 21:30 Active ACCUCHECK Q6H ACTIVITY .BR with BRP CARE 11/11/16 21:24 Active CASE MANAGEMENT CONSULT ONCE CARE 11/11/16 21:25 Active INTAKE & OUTPUT Q8HR CARE 11/11/16 21:24 Active TELEMETRY MONITORING TELE CARE 11/11/16 21:25 Active VITAL SIGNS Q4HR CARE 11/11/16 21:24 Active REGULAR DIET DIETARY 11/11/16 Breakfast Ordered CBC W/ AUTO DIFF DAILY@0600 LAB 11/12/16 06:00 Ordered CBC W/ AUTO DIFF DAILY@0600 LAB 11/13/16 06:00 Ordered CBC W/ AUTO DIFF DAILY@0600 LAB 11/14/16 06:00 Ordered CBC W/ AUTO DIFF DAILY@0600 LAB 11/15/16 06:00 Ordered CBC W/ AUTO DIFF DAILY@0600 LAB 11/16/16 06:00 Ordered CBC W/ AUTO DIFF DAILY@0600 LAB 11/17/16 06:00 Ordered CBC W/ AUTO DIFF DAILY@0600 LAB 11/18/16 06:00 Ordered CBC W/ AUTO DIFF DAILY@0600 LAB 11/19/16 06:00 Ordered CBC W/ AUTO DIFF DAILY@0600 LAB 11/20/16 06:00 Ordered CBC W/ AUTO DIFF DAILY@0600 LAB 11/21/16 06:00 Ordered CBC W/ AUTO DIFF DAILY@0600 LAB 11/22/16 06:00 Ordered CBC W/ AUTO DIFF DAILY@0600 LAB 11/23/16 06:00 Ordered CBC W/ AUTO DIFF DAILY@0600 LAB 11/24/16 06:00 Ordered CBC W/ AUTO DIFF DAILY@0600 LAB 11/25/16 06:00 Ordered CBC W/ AUTO DIFF DAILY@0600 LAB 11/26/16 06:00 Ordered CBC W/ AUTO DIFF DAILY@0600 LAB 11/27/16 06:00 Ordered CBC W/ AUTO DIFF DAILY@0600 LAB 11/28/16 06:00 Ordered CBC W/ AUTO DIFF DAILY@0600 LAB 11/29/16 06:00 Ordered CBC W/ AUTO DIFF DAILY@0600 LAB 11/30/16 06:00 Ordered CBC W/ AUTO DIFF DAILY@0600 LAB 12/01/16 06:00 Ordered CBC W/ AUTO DIFF Stat LAB 11/11/16 21:40 Completed COMPREHENSIVE METABOLIC PANEL DAILY@0600 LAB 11/12/16 06:00 Ordered COMPREHENSIVE METABOLIC PANEL DAILY@0600 LAB 11/13/16 06:00 Ordered COMPREHENSIVE METABOLIC PANEL DAILY@0600 LAB 11/14/16 06:00 Ordered COMPREHENSIVE METABOLIC PANEL DAILY@0600 LAB 11/15/16 06:00 Ordered COMPREHENSIVE METABOLIC PANEL DAILY@0600 LAB 11/16/16 06:00 Ordered COMPREHENSIVE METABOLIC PANEL DAILY@0600 LAB 11/17/16 06:00 Ordered COMPREHENSIVE METABOLIC PANEL DAILY@0600 LAB 11/18/16 06:00 Ordered COMPREHENSIVE METABOLIC PANEL DAILY@0600 LAB 11/19/16 06:00 Ordered COMPREHENSIVE METABOLIC PANEL DAILY@0600 LAB 11/20/16 06:00 Ordered COMPREHENSIVE METABOLIC PANEL DAILY@0600 LAB 11/21/16 06:00 Ordered COMPREHENSIVE METABOLIC PANEL DAILY@0600 LAB 11/22/16 06:00 Ordered COMPREHENSIVE METABOLIC PANEL DAILY@0600 LAB 11/23/16 06:00 Ordered COMPREHENSIVE METABOLIC PANEL DAILY@0600 LAB 11/24/16 06:00 Ordered COMPREHENSIVE METABOLIC PANEL DAILY@0600 LAB 11/25/16 06:00 Ordered COMPREHENSIVE METABOLIC PANEL DAILY@0600 LAB 11/26/16 06:00 Ordered COMPREHENSIVE METABOLIC PANEL DAILY@0600 LAB 11/27/16 06:00 Ordered COMPREHENSIVE METABOLIC PANEL DAILY@0600 LAB 11/28/16 06:00 Ordered COMPREHENSIVE METABOLIC PANEL DAILY@0600 LAB 11/29/16 06:00 Ordered COMPREHENSIVE METABOLIC PANEL DAILY@0600 LAB 11/30/16 06:00 Ordered COMPREHENSIVE METABOLIC PANEL DAILY@0600 LAB 12/01/16 06:00 Ordered COMPREHENSIVE METABOLIC PANEL Stat LAB 11/11/16 21:40 Completed PT WITH INR DAILY@0600 LAB 11/12/16 06:00 Ordered PT WITH INR Stat LAB 11/11/16 21:40 Completed Acetaminophen [Acetaminophen] MEDS 11/11/16 21:28 Ordered 325 mg PO Q6-8H PRN Atorvastatin Calcium [Lipitor] MEDS 11/12/16 21:00 Ordered 40 mg PO BEDTIME Insulin Glargine,Hum.rec.anlog [Lantus] MEDS 11/12/16 09:00 Ordered 40 unit SUBCUT BID Insulin Regular, Human [Humulin R] MEDS 11/11/16 21:31 Ordered See Protocol SUBCUT PRN PRN Losartan Potassium [Cozaar] MEDS 11/12/16 09:00 Ordered 100 mg PO DAILY Metformin HCl [Glucophage] MEDS 11/12/16 09:00 Ordered 1,000 mg PO QAM Metformin HCl [Metformin HCl] MEDS 11/12/16 21:00 Ordered 1,000 mg PO BEDTIME Morphine Sulfate [Morphine 2 mg/ml Syringe] MEDS 11/11/16 21:26 Ordered 2 mg IVP Q4H PRN Ondansetron HCl/Pf [Zofran 4 mg/2 ml] MEDS 11/11/16 21:27 Ordered 4 mg IVP Q6H PRN Sodium Chloride 0.9% [Sodium Chloride] 1,000 ml MEDS 11/11/16 21:30 Ordered IV 50 mls/hr Sotalol HCl [Betapace] MEDS 11/12/16 09:00 Ordered 40 mg PO BID Tamsulosin HCl [Flomax] MEDS 11/12/16 09:00 Ordered 0.4 mg PO DAILY Tramadol HCl [Ultram] MEDS 11/11/16 21:28 Ordered 50 mg PO Q12H PRN Warfarin Sodium [Coumadin] MEDS 11/12/16 17:00 Ordered 5 mg PO QPM RESUSCITATION STATUS Routine OTHERS 11/11/16 21:[address] CERVICAL SPINE W/O CONTRAST Stat RADS 11/11/16 20:[address] HEAD W/O CONTRAST Stat RADS 11/11/16 20:[address] LUMBAR SPINE W/O CONTRAST Stat RADS 11/11/16 20:[address] PELVIS W/O CONTRAST Stat RADS 11/11/16 20:[address] THORACIC SPINE W/O CONTRAST Stat RADS 11/11/16 20:13 Completed Medications Generic Name Dose Route Start Last Admin Trade Name Freq PRN Reason Stop Dose Admin Sodium Chloride 1,000 mls @ 50 mls/hr 11/11/16 21:30 11/11/16 22:39 Sodium Chloride IV 50 mls/hr .Q20H MICHAEL Administration Insulin Glargine 40 unit 11/12/16 09:00 Lantus SUBCUT BID [facility] Insulin Human Regular 0 unit 11/11/16 21:31 Humulin R SUBCUT PRN PRN Hyperglycemica Protocol Losartan Potassium 100 mg 11/12/16 09:00 Cozaar PO DAILY [facility] Morphine Sulfate 2 mg 11/11/16 21:26 Morphine 2 Mg/Ml Syringe IVP Q4H PRN MODERATE PAIN Non-Formulary Medication 325 mg 11/11/16 21:28 Acetaminophen [Acetaminophen] PO Q6-8H PRN Mild Pain Non-Formulary Medication 1,000 mg 11/12/16 09:00 Metformin Hcl [Glucophage] PO QAM [facility] Non-Formulary Medication 1,000 mg 11/12/16 21:00 Metformin Hcl [Metformin Hcl] PO BEDTIME [facility] Non-Formulary Medication 40 mg 11/12/16 21:00 Atorvastatin Calcium [Lipitor] PO BEDTIME [facility] Ondansetron HCl 4 mg 11/11/16 21:27 Zofran 4 Mg/2 Ml IVP Q6H PRN Nausea / Vomiting Sodium Chloride 1 syr 11/11/16 22:37 11/11/16 22:39 Saline Flush IVF 1 syr PRN PRN Administration To flush IV Sotalol HCl 40 mg 11/12/16 09:00 Betapace PO BID [facility] Tamsulosin HCl 0.4 mg 11/12/16 09:00 Flomax PO DAILY MICHAEL Tramadol HCl 50 mg 11/11/16 21:28 11/11/16 23:52 Ultram PO 50 mg Q12H PRN Administration Mild Pain Warfarin Sodium 5 mg 11/12/16 17:00 Coumadin PO QPM MICHAEL Vital Signs: Temp Pulse Resp BP Pulse Ox 11/11/16 20:00 98.8 F 80 18 105/69 92 L Departure - Departure Time of Disposition: 21:23 Disposition: HOME SELF-CARE Discharge Problem: Backache Condition: Good Pt referred to PMD for follow-up: Yes Allergies/Adverse Reactions: Allergies hydrocodone Adverse Reaction (Verified 11/11/16 20:05) Rash Possible rash muscle relaxer Adverse Reaction (Uncoded 10/22/16 18:03) Home Medications: Ambulatory Orders Sotalol HCl [Sotalol] 40 mg PO BID 06/22/13 Atorvastatin Calcium [Lipitor] 40 mg PO BEDTIME 04/01/16 Metformin HCl [Glucophage] 1,000 mg PO QAM #30 tablet 04/05/16 Insulin Glargine,Hum.rec.anlog [Lantus] 45 unit SUBCUT BID 10/22/16 Tamsulosin HCl [Flomax] 0.4 mg PO DAILY 10/22/16 Acetaminophen 325 mg PO Q6-8H PRN #120 capsule 10/29/16 Losartan Potassium [Cozaar] 100 mg PO DAILY #60 tablet 10/29/16 Warfarin Sodium [Coumadin] 5 mg PO QPM #30 tablet 10/29/16 Tramadol HCl 50 mg PO Q12H PRN 11/11/16 Transfer Form Completed: Yes Disposition Discussed With: Patient, Family
[2016-11-11] MEDS ORDERED: MORPHINE 2 MG/ML SYRINGE IVP PRN (21:26)
[2016-11-11] MEDS ORDERED: ZOFRAN 4 MG/2 ML IVP PRN (21:27)
[2016-11-11] MEDS ORDERED: ACETAMINOPHEN 325 MG PO PRN (21:28)
[2016-11-11 21:44] LABS: BASOPHILS % (AUTO) 0.2 % (0.0-3.0); EOSINOPHILS # (AUTO) 0.1 K/ul (0.0-0.7); EOSINOPHILS % (AUTO) 2.1 % (0.0-7.0); HEMATOCRIT 38.3 % (42.0-52.0); HEMOGLOBIN 12.6 g/dl (14.0-18.0); IMMATURE GRANULOCYTE % (AUTO) 0.5 % (0.0-5.0); LYMPHOCYTES # (AUTO) 1.4 K/uL (0.60-3.4); LYMPHOCYTES % (AUTO) 31.8 (10.0-50.0); MEAN CORPUSCULAR HGB CONC 32.9 (31.8-35.4); MEAN CORPUSCULAR VOLUME 94.3 fl (80.0-94.0); MONOCYTES # (AUTO) 0.3 K/uL (0.4-2.0); MONOCYTES % (AUTO) 7.3 (0-10); NEUTROPHILS # (AUTO) 2.5 K/ul (2.0-6.9); NEUTROPHILS % (AUTO) 58.1; PLATELET COUNT 208 10^3/uL (140-440); RED BLOOD COUNT 4.06 10^6/ul (4.70-6.10); WHITE BLOOD COUNT 4.24 K/ul (4.2-10.2)
[2016-11-11 22:01] LABS: PROTHROMBIN TIME 40.3 SEC (9.3-11.0)
[2016-11-11 22:03] LABS: ALBUMIN 2.7 g/dL (3.4-5.0); ALBUMIN/GLOBULIN RATIO 0.87; ANION GAP 11.7; BILIRUBIN,TOTAL 0.34 mg/dL (0.00-1.20); BUN/CREATININE RATIO 15.85; CALCIUM 8.7 mg/dL (8.2-10.2); CREATININE 0.82 mg/dL (0.60-1.10); POTASSIUM 3.7 mmol/L (3.5-5.1); TOTAL PROTEIN 5.8 g/dL (5.8-8.1)
[2016-11-11] MEDS: SODIUM CHLORIDE 1,000 ML IV SCH (22:39)
[2016-11-11 23:29] VITALS: BMI 35.1
[2016-11-11] MEDS: ULTRAM PO PRN (23:52)
[2016-11-12 04:42] LABS: BASOPHILS % (AUTO) 0.6 % (0.0-3.0); EOSINOPHILS # (AUTO) 0.1 K/ul (0.0-0.7); EOSINOPHILS % (AUTO) 2.3 % (0.0-7.0); HEMATOCRIT 36.8 % (42.0-52.0); HEMOGLOBIN 12.3 g/dl (14.0-18.0); IMMATURE GRANULOCYTE % (AUTO) 0.4 % (0.0-5.0); LYMPHOCYTES # (AUTO) 1.7 K/uL (0.60-3.4); LYMPHOCYTES % (AUTO) 35.8 (10.0-50.0); MEAN CORPUSCULAR HEMOGLOBIN 31.5 pg (27.0-31.0); MEAN CORPUSCULAR HGB CONC 33.4 (31.8-35.4); MEAN CORPUSCULAR VOLUME 94.1 fl (80.0-94.0); MONOCYTES # (AUTO) 0.4 K/uL (0.4-2.0); MONOCYTES % (AUTO) 9.1 (0-10); NEUTROPHILS # (AUTO) 2.5 K/ul (2.0-6.9); NEUTROPHILS % (AUTO) 51.8; PLATELET COUNT 186 10^3/uL (140-440); RED BLOOD COUNT 3.91 10^6/ul (4.70-6.10); WHITE BLOOD COUNT 4.81 K/ul (4.2-10.2)
[2016-11-12 05:11] LABS: ALBUMIN 2.5 g/dL (3.4-5.0); ALBUMIN/GLOBULIN RATIO 0.89; ANION GAP 10.4; BILIRUBIN,TOTAL 0.26 mg/dL (0.00-1.20); BUN/CREATININE RATIO 18.3; CALCIUM 8.3 mg/dL (8.2-10.2); CREATININE 0.71 mg/dL (0.60-1.10); POTASSIUM 3.4 mmol/L (3.5-5.1); TOTAL PROTEIN 5.3 g/dL (5.8-8.1)
[2016-11-12 05:12] LABS: PROTHROMBIN TIME 48.5 SEC (9.3-11.0)
[2016-11-12] MEDS ORDERED: TYLENOL PO PRN (07:28)
[2016-11-12] MEDS ORDERED: NON-FORMULARY MEDICATION (Metformin Hcl [Glucophage] 1,000 MG) PO SCH ×22 (09:00)
[2016-11-12] MEDS ORDERED: LANTUS SUBCUT SCH ×2 (09:00→21:00)
[2016-11-12] MEDS: GLUCOPHAGE PO SCH (09:54)
[2016-11-12] MEDS: COZAAR PO SCH (09:55)
[2016-11-12] MEDS: BETAPACE PO SCH ×2 (09:55→20:42)
[2016-11-12] MEDS: FLOMAX PO SCH (09:55)
--- NOTE | 2016-11-12 11:14 | PCM.PROG ---
Attending Provider: ATTENDING PROVIDER: Dr. ROBB BROWER DATE OF SERVICE: 11/12/16 SUBJECTIVE: This 80 year old WHITE/ M was hospitalized 11/11/16 The patient is alert and oriented lying in bed. The patient fell yesterday at home, stating that his knees got weak. No new fractures. He is still with back pain due to old compression fractures. INR 4.7 on admission. Vital signs are good. REVIEW OF SYSTEMS: CONSTITUTIONAL: Generalized weakness. No night sweats. No fever or chills. HEENT: Eyes: No visual changes. No eye pain. No eye discharge. ENT: No runny nose. No epistaxis. No sinus pain. No odynophagia. No congestion. RESPIRATORY: No cough, no congestion. No hemoptysis. CARDIOVASCULAR: No angina symptoms. No CHF symptoms. No atypical chest pain for CAD. No palpitations. No shortness of breath. GASTROINTESTINAL: No abdominal pain. No nausea or vomiting. No diarrhea or constipation. No hematemesis. No hematochezia. GENITOURINARY: No urgency. No frequency. No dysuria. No hematuria. No obstructive symptoms. No discharge. No pain. No significant abnormal bleeding. MUSCULOSKELETAL: Back pain. NEUROLOGICAL: Awake, alert, oriented to time, place and person. No headache. No neck pain. No syncope. No seizures. No dizziness. PSYCHIATRIC: Not anxious. No depression. No suicidal thoughts. No homicidal thoughts. SKIN: No rash. No lesions. No wounds. ENDOCRINE: No unexplained weight loss. No weight gain. HEMATOLOGIC/LYMPHATIC: No anemia. No purpura. No petechiae. No prolonged or excessive bleeding. No palpable lymph nodes. PHYSICAL EXAMINATION: GENERAL: The patient is awake, alert and oriented, lying in bed in no distress. VITAL SIGNS: Temperature 97.2 F, Pulse 68, Respiratory Rate 20, BP 126/82, Pulse Ox 95% HEENT: Head normocephalic, atraumatic. Eyes: Extraocular muscles are intact. Pupils are equal, round and reactive to light and accommodation. Ears: No lesions. Nose appeared normal. Throat: No exudate or erythema. NECK: Supple. No JVD, no carotid bruit. No lymphadenopathy or thyromegaly. LUNGS: Decreased breath sounds bilaterally. Clear to auscultation. Percussion note normal. Chest symmetrical. HEART: S1, S2, no S3. No murmurs. No cyanosis or clubbing. No ascites. Pulses: Dorsalis pedis and posterior tibial pulses +1 to +2 both sides. ABDOMEN: Soft. Non-tender. Bowel sounds active. No CVA tenderness. No mass felt. EXTREMITIES: No edema. Full range of motion of all extremities, equal. NEUROLOGIC: No focal deficit. Cranial nerves II through XII are grossly intact. No headache, no double vision or headache. SKIN: Not dry. Intact. Turgor-normal. LYMPHATIC: No palpable lymph nodes/no lymphedema. MUSCULOSKELETAL: Normal joints with no swelling. Muscle tone is normal. LAB REVIEW: 11/12/16 04:30 11/12/16 04:30 11/12/16 04:30: WBC 4.81, RBC 3.91 L, Hgb 12.3 L, Hct 36.8 L, MCV 94.1 H, MCH 31.5 H, MCHC 33.4, RDW Coeff of Tramaine 14.6, Plt Count 186, Immature Gran % (Auto) 0.4, Neut % (Auto) 51.8, Lymph % (Auto) 35.8, Ward % (Auto) 9.1, Eos % (Auto) 2.3, Baso % (Auto) 0.6, Immature Gran # (Auto) 0.0, Neut # 2.5, Lymph # 1.7, Ward # 0.4, Eos # 0.1, Baso # 0.0, PT 48.5 H D, INR 4.71 H*, Sodium 145, Potassium 3.4 L, Chloride 110 H, Carbon Dioxide 28, Anion Gap 10.4, BUN 13, Creatinine 0.71, Estimated GFR (MDRD) 107.00, BUN/Creatinine Ratio 18.30, Glucose 45 L* D, Calcium 8.3, Total Bilirubin 0.26, AST 15, ALT 13, Alkaline Phosphatase 58, Total Protein 5.3 L, Albumin 2.5 L, Globulin 2.8, Albumin/ Globulin Ratio 0.89 11/11/16 21:40: WBC 4.24, RBC 4.06 L, Hgb 12.6 L, Hct 38.3 L, MCV 94.3 H, MCH 31.0, MCHC 32.9, RDW Coeff of Tramaine 14.6, Plt Count 208, Immature Gran % (Auto) 0.5, Neut % (Auto) 58.1, Lymph % (Auto) 31.8, Ward % (Auto) 7.3, Eos % (Auto) 2.1, Baso % (Auto) 0.2, Immature Gran # (Auto) 0.0, Neut # 2.5, Lymph # 1.4, Ward # 0.3 L, Eos # 0.1, Baso # 0.0, PT 40.3 H, INR 3.91 H, Sodium 143, Potassium 3.7, Chloride 107, Carbon Dioxide 28, Anion Gap 11.7, BUN 13, Creatinine 0.82, Estimated GFR (MDRD) 91.00, BUN/Creatinine Ratio 15.85, Glucose 111, Calcium 8.7, Total Bilirubin 0.34, AST 15, ALT 14, Alkaline Phosphatase 63, Total Protein 5.8, Albumin 2.7 L, Globulin 3.1, Albumin/ Globulin Ratio 0.87 ASSESSMENT: 1. Previous falls 2. L3 compression fracture 3. Diabetes mellitus type 2 4. History of DVT on Coumadin 5. Dementia 6. CAD with CABG 7. Hypertension PLAN: 1. Hold Glucophage 2. Hold Coumadin 3. PT consultation 4. Continue Tramadol 5. D/C Morphine Plan and coordination of the patient's care discussed in the presence of Medical Communication Specialist and nurse. CONDITION: Stable SCRIBED BY: LISA HOLGUIN Internet Technology Manager scribed while in presence of service performed by Dr. ROBB BROWER/NEMO BARBER APRN on 11/12/16 ([id number])
[2016-11-12] MEDS: HUMULIN R SUBCUT PRN ×2 (12:12→17:42)
[2016-11-12] MEDS ORDERED: COUMADIN PO SCH ×3 (17:00)
[2016-11-12] MEDS: SODIUM CHLORIDE 1,000 ML IV SCH (17:37)
[2016-11-12] MEDS: LIPITOR PO SCH (20:41)
[2016-11-12] MEDS ORDERED: NON-FORMULARY MEDICATION (Atorvastatin Calcium [Lipitor] 40 MG) PO SCH ×22 (21:00)
[2016-11-12] MEDS ORDERED: NON-FORMULARY MEDICATION (Metformin Hcl [Metformin Hcl] 1,000 MG) PO SCH ×22 (21:00)
[2016-11-13 04:31] LABS: BASOPHILS % (AUTO) 0.4 % (0.0-3.0); EOSINOPHILS # (AUTO) 0.1 K/ul (0.0-0.7); EOSINOPHILS % (AUTO) 2.2 % (0.0-7.0); HEMATOCRIT 36.7 % (42.0-52.0); HEMOGLOBIN 12.2 g/dl (14.0-18.0); IMMATURE GRANULOCYTE % (AUTO) 0.4 % (0.0-5.0); LYMPHOCYTES # (AUTO) 1.5 K/uL (0.60-3.4); LYMPHOCYTES % (AUTO) 33.5 (10.0-50.0); MEAN CORPUSCULAR HEMOGLOBIN 31.1 pg (27.0-31.0); MEAN CORPUSCULAR HGB CONC 33.2 (31.8-35.4); MEAN CORPUSCULAR VOLUME 93.6 fl (80.0-94.0); MONOCYTES # (AUTO) 0.4 K/uL (0.4-2.0); MONOCYTES % (AUTO) 9.3 (0-10); NEUTROPHILS # (AUTO) 2.5 K/ul (2.0-6.9); NEUTROPHILS % (AUTO) 54.2; PLATELET COUNT 205 10^3/uL (140-440); RED BLOOD COUNT 3.92 10^6/ul (4.70-6.10)
[2016-11-13 04:57] LABS: ALBUMIN 2.5 g/dL (3.4-5.0); ALBUMIN/GLOBULIN RATIO 0.89; ANION GAP 9.8; BILIRUBIN,TOTAL 0.29 mg/dL (0.00-1.20); BUN/CREATININE RATIO 17.46; CALCIUM 8.4 mg/dL (8.2-10.2); CREATININE 0.63 mg/dL (0.60-1.10); POTASSIUM 3.8 mmol/L (3.5-5.1); TOTAL PROTEIN 5.3 g/dL (5.8-8.1)
[2016-11-13 07:26] LABS: PROTHROMBIN TIME 33.7 SEC (9.3-11.0)
[2016-11-13] MEDS: BETAPACE PO SCH ×2 (08:20→20:47)
[2016-11-13] MEDS: GLUCOPHAGE PO SCH (08:20)
[2016-11-13] MEDS: COZAAR PO SCH (08:20)
[2016-11-13] MEDS: FLOMAX PO SCH (08:20)
[2016-11-13] MEDS: HUMULIN R SUBCUT PRN ×2 (11:08→20:47)
--- NOTE | 2016-11-13 11:22 | PCM.PROG ---
Attending Provider: ATTENDING PROVIDER: Dr. ROBB BROWER DATE OF SERVICE: 11/13/16 SUBJECTIVE: This 80 year old WHITE/ M was hospitalized 11/11/16 with back pain, which is controlled. Morphine has been discontinued. He was found at home covered in feces and surrounding areas and is unable to take care of himself. The patient is oriented to person, place and date but is confused at times. Other problem is hypoglycemia. We are going to discontinue Lantus and put the patient on sliding scale and Metformin continued. Kidney functions are normal. REVIEW OF SYSTEMS: CONSTITUTIONAL: No night sweats. No fatigue, malaise, lethargy. No fever or chills. HEENT: Eyes: No visual changes. No eye pain. No eye discharge. ENT: No runny nose. No epistaxis. No sinus pain. No odynophagia. No congestion. RESPIRATORY: No cough, no congestion. No hemoptysis. CARDIOVASCULAR: No angina symptoms. No CHF symptoms. No atypical chest pain for CAD. No palpitations. No shortness of breath. GASTROINTESTINAL: No abdominal pain. No nausea or vomiting. No diarrhea or constipation. No hematemesis. No hematochezia. GENITOURINARY: No urgency. No frequency. No dysuria. No hematuria. No obstructive symptoms. No discharge. No pain. No significant abnormal bleeding. MUSCULOSKELETAL: Mild back pain. NEUROLOGICAL: Awake, alert, oriented to person and place. No headache. No neck pain. No syncope. No seizures. No dizziness. PSYCHIATRIC: Not anxious. No depression. No suicidal thoughts. No homicidal thoughts. SKIN: No rash. No lesions. No wounds. ENDOCRINE: No unexplained weight loss. No weight gain. HEMATOLOGIC/LYMPHATIC: No anemia. No purpura. No petechiae. No prolonged or excessive bleeding. No palpable lymph nodes. PHYSICAL EXAMINATION: GENERAL: The patient is awake, alert and oriented to person and place lying in bed in no distress. VITAL SIGNS: Temperature 96.7 F, Pulse 67, Respiratory Rate 18, BP 162/81, Pulse Ox 95% HEENT: Head normocephalic, atraumatic. Eyes: Extraocular muscles are intact. Pupils are equal, round and reactive to light and accommodation. Ears: No lesions. Nose appeared normal. Throat: No exudate or erythema. NECK: Supple. No JVD, no carotid bruit. No lymphadenopathy or thyromegaly. LUNGS: Clear to auscultation. Percussion note normal. Chest symmetrical. HEART: S1, S2, no S3. No murmurs. No cyanosis or clubbing. No ascites. Pulses: Dorsalis pedis and posterior tibial pulses +1 to +2 both sides. ABDOMEN: Soft. Non-tender. Bowel sounds active. No CVA tenderness. No mass felt. EXTREMITIES: No edema. Full range of motion of all extremities, equal. NEUROLOGIC: No focal deficit. Cranial nerves II through XII are grossly intact. No headache, no double vision or headache. SKIN: Not dry. Intact. Turgor-normal. LYMPHATIC: No palpable lymph nodes/no lymphedema. MUSCULOSKELETAL: Normal joints with no swelling. Muscle tone is normal. LAB REVIEW: 11/13/16 04:29 11/13/16 04:29 11/13/16 04:29: WBC 4.60, RBC 3.92 L, Hgb 12.2 L, Hct 36.7 L, MCV 93.6, MCH 31.1 H, MCHC 33.2, RDW Coeff of Tramaine 14.4, Plt Count 205, Immature Gran % (Auto) 0.4, Neut % (Auto) 54.2, Lymph % (Auto) 33.5, [place] % (Auto) 9.3, Eos % (Auto) 2.2, Baso % (Auto) 0.4, Immature Gran # (Auto) 0.0, Neut # 2.5, Lymph # 1.5, [place] # 0.4, Eos # 0.1, Baso # 0.0, Sodium 145, Potassium 3.8, Chloride 112 H, Carbon Dioxide 27, Anion Gap 9.8, BUN 11, Creatinine 0.63, Estimated GFR (MDRD) 123.00, BUN/Creatinine Ratio 17.46, Glucose 36 L*, Calcium 8.4, Total Bilirubin 0.29, AST 12 L, ALT 13, Alkaline Phosphatase 57, Total Protein 5.3 L, Albumin 2.5 L, Globulin 2.8, Albumin/Globulin Ratio 0.89 11/13/16 04:05: PT 33.7 H D, INR 3.27 ASSESSMENT: 1. Back pain, controlled. 2. Hypoglycemia being treated. PLAN: 1. INR 4.7 yesterday, Coumadin on hold but give if INR falls to less than 2. 2. The patient is being evaluated for fpc placement. 3. PT Consult - the patient up and about. 4. Discontinue IV fluids. 5. Continue Accu-Cheks. 6. Decrease Lantus to 35 units b.i.d. Plan and coordination of the patient's care discussed in the presence of Public Address System Operator and nurse. EDUCATION CARRIED OUT ABOUT: Education carried out about diabetes mellitus and hypoglycemia symptoms and treatment. CONDITION: Stable. SCRIBED BY: LISA HOLGUIN Truck Unloader scribed while in presence of service performed by Dr. ROBB BROWER on 11/13/16 ([id number])
[2016-11-13] MEDS: ULTRAM PO PRN (12:01)
--- NOTE | 2016-11-13 13:27 | HP ---
DATE OF SERVICE: 11/11/16 CHIEF COMPLAINT: "He fell and he was hurting". HISTORY OF PRESENT ILLNESS: The patient is a 80-year-old male admitted to [facility] on after arriving in the emergency room. He came to the emergency room via ambulance after falling at home. The patient has a history of falls. He was previously hospitalized after a fall and had an acute L3 compression fracture. CT scan of the lumbar spine showed that this fracture is stable. There were no other injuries upon the fall. CT of the brain was normal. CT of the C-spine was also normal. Upon arriving in the ER, the patient's hemoglobin was 12.6, hematocrit 38.3, BUN 13, creatinine 0.82. The patient reported he was in acute pain. He was admitted to the hospital, placed on Morphine p.r.n. as well as Tramadol with routine telemetry orders. REVIEW OF SYSTEMS: CONSTITUTIONAL: No night sweats. No fatigue, malaise, lethargy. No fever or chills. HEENT: Eyes: No visual changes. No eye pain. No eye discharge. ENT: No runny nose. No epistaxis. No sinus pain. No sore throat. No odynophagia. No ear pain. No congestion. RESPIRATORY: No cough, no congestion. No hemoptysis. CARDIOVASCULAR: No angina symptoms. No CHF symptoms. No atypical chest pain for CAD. No palpitations. No shortness of breath. GASTROINTESTINAL: No abdominal pain. No nausea or vomiting. No diarrhea or constipation. No hematemesis. No hematochezia. GENITOURINARY: No urgency. No frequency. No dysuria. No hematuria. No obstructive symptoms. No discharge. No pain. No significant abnormal bleeding. MUSCULOSKELETAL: Back pain. NEUROLOGICAL: Positive for bouts of confusion. No headache. No neck pain. No syncope. No seizures. No dizziness. PSYCHIATRIC: Not anxious. No depression. No suicidal thoughts. No homicidal thoughts. SKIN: No rash. No lesions. No wounds. ENDOCRINE: No unexplained weight loss. No weight gain. HEMATOLOGIC/LYMPHATIC: No anemia. No purpura. No petechiae. No prolonged or excessive bleeding. No palpable lymph nodes. PERSONAL/FAMILY/SOCIAL HISTORY: The patient is a former smoker. He denies any alcohol or illicit drug use. He currently lives by himself after previously spending about one week in [facility]. He has a nephew who lives in [place] who visits him several times throughout the week as well as a neighbor who checks on him daily. The neighbor is who found him after falling. PAST MEDICAL/SURGICAL PROBLEMS: 1. Previous appendectomy 2. Cholecystectomy 3. Tonsillectomy 4. CABG, 1995 5. Diabetes mellitus Type 2 6. Coronary artery disease status post CABG 7. Hypertension 8. History of cancer of the prostate 9. History of pulmonary embolus 10. Atrial fibrillation 11. Peripheral arterial disease 12. History of LVH 13. Dyslipidemia 14. BPH 15. Chronic low back pain, L3 compression fracture which is stable 16. Dementia CURRENT MEDICATIONS: 1. Coumadin 6 mg daily 2. Ultram 50 mg b.i.d. q.12hr 3. Metformin 1000 mg daily 4. Lantus 45 units b.i.d. 5. Lipitor 40 mg daily 6. Flomax 0.4 daily 7. Cozaar 100 mg daily 8. Sotalol 80 mg 1/2 tablet b.i.d. ALLERGIES: HYDROCODONE (MUSCLE RELAXER) PHYSICAL EXAMINATION: GENERAL/APPEARANCE: The patient is well-nourished in no distress. HEENT: Head normocephalic, atraumatic. Eyes: Extraocular muscles are intact. Pupils are equal, round and reactive to light and accommodation. Conjunctivae clear. Ears: No lesions. Nose appeared normal. Throat: No exudate or erythema. NECK: Supple. No JVD, no carotid bruit. No lymphadenopathy or thyromegaly. LUNGS: Breath sounds are clear but diminished bilaterally and equal, nonlabored. Percussion note normal. Chest symmetrical. HEART: S1, S2, no S3. No murmurs, clicks or rubs. History of atrial fibrillation. No cyanosis or clubbing. No ascites. Pulses: Dorsalis pedis and posterior tibial pulses +1 to +2 both sides. ABDOMEN: Soft. Nontender. No hepatosplenomegaly. No abdominal distention. Bowel sounds active. No CVA tenderness. No mass felt. EXTREMITIES: No edema. Full range of motion of all extremities, equal. NEUROLOGIC: Alert and oriented to person and place. Has bouts of confusion. No headache, no double vision or headache. SKIN: Warm, dry and Intact. Turgor - normal. LYMPHATIC: No palpable lymph nodes/no lymphedema. MUSCULOSKELETAL: The patient has decreased strength, has generalized weakness. No edema bilaterally. LAB/RADIOLOGIC REVIEW: Hemoglobin 12.6, hematocrit 38.3, sodium 143, potassium 3.7, BUN 13, creatinine 0.82, glucose 111. CT of the lumbar spine showed L3 level compression fracture which is stable. CT of the pelvis stable compression fracture of L4 which is from previous, degenerative changes. CT of thoracic spine was normal. CT of C- spine was normal. CT of brain was normal. ASSESSMENT: 1. BACK PAIN WITH PREVIOUS COMPRESSION FRACTURES L3-L4 2. GENERALIZED WEAKNESS 3. HISTORY OF FALLS 4. DEMENTIA WITH BEHAVIORAL CHANGES 5. DIABETES MELLITUS TYPE 2 6. HYPERTENSION PLAN: 1. Will admit to floor. 2. Routine telemetry orders. 3. Hold Coumadin as PT INR elevated, INR 4.7. 4. Continue all home medications. 5. Morphine q.4hr 2 mg p.r.n. for pain. 6. ADA diet. 7. Sliding scale insulin. 8. CBC and CMP daily. 9. Will continue to follow. TIME SPENT: More than 70 minutes. MTDD
[2016-11-13] MEDS: LIPITOR PO SCH (20:47)
[2016-11-14 04:50] LABS: BASOPHILS % (AUTO) 0.6 % (0.0-3.0); EOSINOPHILS # (AUTO) 0.1 K/ul (0.0-0.7); EOSINOPHILS % (AUTO) 2.7 % (0.0-7.0); HEMATOCRIT 37.2 % (42.0-52.0); HEMOGLOBIN 12.2 g/dl (14.0-18.0); IMMATURE GRANULOCYTE % (AUTO) 0.2 % (0.0-5.0); LYMPHOCYTES # (AUTO) 1.6 K/uL (0.60-3.4); LYMPHOCYTES % (AUTO) 32.9 (10.0-50.0); MEAN CORPUSCULAR HEMOGLOBIN 30.7 pg (27.0-31.0); MEAN CORPUSCULAR HGB CONC 32.8 (31.8-35.4); MEAN CORPUSCULAR VOLUME 93.5 fl (80.0-94.0); MONOCYTES # (AUTO) 0.5 K/uL (0.4-2.0); MONOCYTES % (AUTO) 9.8 (0-10); NEUTROPHILS # (AUTO) 2.6 K/ul (2.0-6.9); NEUTROPHILS % (AUTO) 53.8; PLATELET COUNT 209 10^3/uL (140-440); RED BLOOD COUNT 3.98 10^6/ul (4.70-6.10)
[2016-11-14 05:01] LABS: PROTHROMBIN TIME 20.3 SEC (9.3-11.0)
[2016-11-14 05:10] LABS: ALBUMIN 2.5 g/dL (3.4-5.0); ALBUMIN/GLOBULIN RATIO 0.89; BILIRUBIN,TOTAL 0.36 mg/dL (0.00-1.20); BUN/CREATININE RATIO 15.15; CALCIUM 8.3 mg/dL (8.2-10.2); CREATININE 0.66 mg/dL (0.60-1.10); TOTAL PROTEIN 5.3 g/dL (5.8-8.1)
[2016-11-14] MEDS: GLUCOPHAGE PO SCH (08:23)
[2016-11-14] MEDS: FLOMAX PO SCH (08:24)
[2016-11-14] MEDS: COZAAR PO SCH (08:24)
[2016-11-14] MEDS: BETAPACE PO SCH ×2 (08:24→20:25)
--- NOTE | 2016-11-14 09:55 | PCM.PROG ---
Attending Provider: ATTENDING PROVIDER: Dr. ROBB BROWER DATE OF SERVICE: 11/14/16 SUBJECTIVE: This 80 year old WHITE/ M was hospitalized 11/11/16. The patient is alert. He has walked to the door this morning and now is sitting up in chair. The patient had episodes of hypoglycemia and is on sliding scale insulin only. He states he is in no pain today. REVIEW OF SYSTEMS: CONSTITUTIONAL: Weakness, confusion. No night sweats. No fever or chills. HEENT: Eyes: No visual changes. No eye pain. No eye discharge. ENT: No runny nose. No epistaxis. No sinus pain. No odynophagia. No congestion. RESPIRATORY: No cough, no congestion. No hemoptysis. CARDIOVASCULAR: No angina symptoms. No CHF symptoms. No atypical chest pain for CAD. No palpitations. No shortness of breath. GASTROINTESTINAL: No abdominal pain. No nausea or vomiting. No diarrhea or constipation. No hematemesis. No hematochezia. GENITOURINARY: No urgency. No frequency. No dysuria. No hematuria. No obstructive symptoms. No discharge. No pain. No significant abnormal bleeding. MUSCULOSKELETAL: No musculoskeletal pain; no joint swelling. NEUROLOGICAL: Awake, alert, oriented to time, place and person. No headache. No neck pain. No syncope. No seizures. No dizziness. PSYCHIATRIC: Not anxious. No depression. No suicidal thoughts. No homicidal thoughts. SKIN: No rash. No lesions. No wounds. ENDOCRINE: No unexplained weight loss. No weight gain. HEMATOLOGIC/LYMPHATIC: No anemia. No purpura. No petechiae. No prolonged or excessive bleeding. No palpable lymph nodes. PHYSICAL EXAMINATION: GENERAL: The patient is awake, alert and oriented, sitting in chair in no distress. VITAL SIGNS: Temperature 97.4 F, Pulse 64, Respiratory Rate 18, BP 160/86, Pulse Ox 96% HEENT: Head normocephalic, atraumatic. Eyes: Extraocular muscles are intact. Pupils are equal, round and reactive to light and accommodation. Ears: No lesions. Nose appeared normal. Throat: No exudate or erythema. NECK: Supple. No JVD, no carotid bruit. No lymphadenopathy or thyromegaly. LUNGS: Decreased breath sounds bilaterally. Clear to auscultation. Percussion note normal. Chest symmetrical. HEART: S1, S2, no S3. No murmurs. No cyanosis or clubbing. No ascites. Pulses: Dorsalis pedis and posterior tibial pulses +1 to +2 both sides. ABDOMEN: Soft. Non-tender. Bowel sounds active. No CVA tenderness. No mass felt. EXTREMITIES: No edema. Full range of motion of all extremities, equal. NEUROLOGIC: No focal deficit. Cranial nerves II through XII are grossly intact. No headache, no double vision or headache. SKIN: Not dry. Intact. Turgor-normal. LYMPHATIC: No palpable lymph nodes/no lymphedema. MUSCULOSKELETAL: Normal joints with no swelling. Muscle tone is normal. LAB REVIEW: 11/14/16 04:30 11/14/16 04:30 11/14/16 04:30: WBC 4.90, RBC 3.98 L, Hgb 12.2 L, Hct 37.2 L, MCV 93.5, MCH 30.7 , MCHC 32.8, RDW Coeff of Tramaine 14.3, Plt Count 209, Immature Gran % (Auto) 0.2, Neut % (Auto) 53.8, Lymph % (Auto) 32.9, [place] % (Auto) 9.8, Eos % (Auto) 2.7, Baso % (Auto) 0.6, Immature Gran # (Auto) 0.0, Neut # 2.6, Lymph # 1.6, [place] # 0.5, Eos # 0.1, Baso # 0.0, PT 20.3 H D, INR 1.97, Sodium 144, Potassium 4.0, Chloride 110 H, Carbon Dioxide 26, Anion Gap 12.0, BUN 10, Creatinine 0.66, Estimated GFR (MDRD) 117.00, BUN/Creatinine Ratio 15.15, Glucose 86, Calcium 8.3 , Total Bilirubin 0.36, AST 12 L, ALT 13, Alkaline Phosphatase 59, Total Protein 5.3 L, Albumin 2.5 L, Globulin 2.8, Albumin/Globulin Ratio 0.89 ASSESSMENT: 1. Back pain, controlled. 2. Hypoglycemia being treated. 3. Generalized weakness. PLAN: 1. Restart Coumadin 5 mg. 2. Continue sliding scale insulin. 3. INR daily - 1.97 today. 4. Anticipate discharge to [facility] tomorrow. Plan and coordination of the patient's care discussed in the presence of Stove Tender and nurse. CONDITION: Stable SCRIBED BY: LISA HOLGUIN Waiter/Waitress Informal scribed while in presence of service performed by Dr. ROBB BROWER/NEMO BARBER APRN on 11/14/16 ([id number])
[2016-11-14] MEDS: HUMULIN R SUBCUT PRN ×2 (12:40→21:47)
[2016-11-14] MEDS ORDERED: COUMADIN PO SCH (17:00)
[2016-11-14] MEDS: LIPITOR PO SCH (20:25)
[2016-11-15 05:45] LABS: BASOPHILS % (AUTO) 0.8 % (0.0-3.0); EOSINOPHILS # (AUTO) 0.1 K/ul (0.0-0.7); EOSINOPHILS % (AUTO) 1.8 % (0.0-7.0); HEMATOCRIT 40.1 % (42.0-52.0); HEMOGLOBIN 13.4 g/dl (14.0-18.0); IMMATURE GRANULOCYTE % (AUTO) 0.8 % (0.0-5.0); LYMPHOCYTES # (AUTO) 1.6 K/uL (0.60-3.4); LYMPHOCYTES % (AUTO) 31.7 (10.0-50.0); MEAN CORPUSCULAR HGB CONC 33.4 (31.8-35.4); MEAN CORPUSCULAR VOLUME 92.8 fl (80.0-94.0); MONOCYTES # (AUTO) 0.5 K/uL (0.4-2.0); MONOCYTES % (AUTO) 9.9 (0-10); NEUTROPHILS # (AUTO) 2.7 K/ul (2.0-6.9); PLATELET COUNT 236 10^3/uL (140-440); RED BLOOD COUNT 4.32 10^6/ul (4.70-6.10); WHITE BLOOD COUNT 4.96 K/ul (4.2-10.2)
[2016-11-15 05:48] VITALS: BP 155/93; TEMP 98.2
[2016-11-15 05:56] LABS: PROTHROMBIN TIME 13.7 SEC (9.3-11.0)
[2016-11-15 06:05] LABS: ALBUMIN 2.8 g/dL (3.4-5.0); ALBUMIN/GLOBULIN RATIO 0.88; ANION GAP 13.9; BILIRUBIN,TOTAL 0.41 mg/dL (0.00-1.20); BUN/CREATININE RATIO 15.15; CALCIUM 9.1 mg/dL (8.2-10.2); CREATININE 0.66 mg/dL (0.60-1.10); POTASSIUM 3.9 mmol/L (3.5-5.1)
[2016-11-15] MEDS: FLOMAX PO SCH (08:31)
[2016-11-15] MEDS: GLUCOPHAGE PO SCH (08:31)
[2016-11-15] MEDS: COZAAR PO SCH (08:32)
[2016-11-15] MEDS: BETAPACE PO SCH (08:32)
--- NOTE | 2016-11-15 11:04 | PCM.PROG ---
Attending Provider: ATTENDING PROVIDER: Dr. ROBB BROWER DATE OF SERVICE: 11/15/16 SUBJECTIVE: This 80 year old WHITE/ M was hospitalized 11/11/16. The patient is lying in bed ready to go to rehab today. He has been doing well with no episodes of hypoglycemia since sliding scale insulin. REVIEW OF SYSTEMS: CONSTITUTIONAL: No night sweats. No fatigue, malaise, lethargy. No fever or chills. HEENT: Eyes: No visual changes. No eye pain. No eye discharge. ENT: No runny nose. No epistaxis. No sinus pain. No odynophagia. No congestion. RESPIRATORY: No cough, no congestion. No hemoptysis. CARDIOVASCULAR: No angina symptoms. No CHF symptoms. No atypical chest pain for CAD. No palpitations. No shortness of breath. GASTROINTESTINAL: No abdominal pain. No nausea or vomiting. No diarrhea or constipation. No hematemesis. No hematochezia. GENITOURINARY: No urgency. No frequency. No dysuria. No hematuria. No obstructive symptoms. No discharge. No pain. No significant abnormal bleeding. MUSCULOSKELETAL: Generalized weakness. No musculoskeletal pain; no joint swelling. NEUROLOGICAL: Awake, alert, oriented to time, place and person. No headache. No neck pain. No syncope. No seizures. No dizziness. PSYCHIATRIC: Not anxious. No depression. No suicidal thoughts. No homicidal thoughts. SKIN: No rash. No lesions. No wounds. ENDOCRINE: No unexplained weight loss. No weight gain. HEMATOLOGIC/LYMPHATIC: No anemia. No purpura. No petechiae. No prolonged or excessive bleeding. No palpable lymph nodes. PHYSICAL EXAMINATION: GENERAL: The patient is awake, alert and oriented, lying in no distress. VITAL SIGNS: Temperature 98.2 F, Pulse 69, Respiratory Rate 20, BP 155/93, Pulse Ox 95% HEENT: Head normocephalic, atraumatic. Eyes: Extraocular muscles are intact. Pupils are equal, round and reactive to light and accommodation. Ears: No lesions. Nose appeared normal. Throat: No exudate or erythema. NECK: Supple. No JVD, no carotid bruit. No lymphadenopathy or thyromegaly. LUNGS: Decreased breath sounds, clear to auscultation. Percussion note normal. Chest symmetrical. HEART: S1, S2, no S3. No murmurs. No cyanosis or clubbing. No ascites. Pulses: Dorsalis pedis and posterior tibial pulses +1 to +2 both sides. ABDOMEN: Soft. Non-tender. Bowel sounds active. No CVA tenderness. No mass felt. EXTREMITIES: No edema. Full range of motion of all extremities, equal. NEUROLOGIC: No focal deficit. Cranial nerves II through XII are grossly intact. No headache, no double vision or headache. SKIN: Not dry. Intact. Turgor-normal. LYMPHATIC: No palpable lymph nodes/no lymphedema. MUSCULOSKELETAL: Normal joints with no swelling. Muscle tone is normal. LAB REVIEW: 11/15/16 05:20 11/15/16 05:20 11/15/16 05:20: WBC 4.96, RBC 4.32 L, Hgb 13.4 L, Hct 40.1 L, MCV 92.8, MCH 31.0 , MCHC 33.4, RDW Coeff of Tramaine 14.3, Plt Count 236, Immature Gran % (Auto) 0.8, Neut % (Auto) 55.0, Lymph % (Auto) 31.7, [place] % (Auto) 9.9, Eos % (Auto) 1.8, Baso % (Auto) 0.8, Immature Gran # (Auto) 0.0, Neut # 2.7, Lymph # 1.6, [place] # 0.5, Eos # 0.1, Baso # 0.0, PT 13.7 H D, INR 1.33, Sodium 145, Potassium 3.9, Chloride 108 H, Carbon Dioxide 27, Anion Gap 13.9, BUN 10, Creatinine 0.66, Estimated GFR (MDRD) 117.00, BUN/Creatinine Ratio 15.15, Glucose 92, Calcium 9.1 , Total Bilirubin 0.41, AST 13 L, ALT 15, Alkaline Phosphatase 69, Total Protein 6.0, Albumin 2.8 L, Globulin 3.2, Albumin/Globulin Ratio 0.88 ASSESSMENT: 1. Back pain, controlled. 2. Hypoglycemia resolved 3. Generalized weakness. 4. History of falls. PLAN: 1. Discussed hypoglycemia and encouraged him to eat well, 3 meals a day. 2. D/C to [facility] today. 3. Repeat INR daily until steady (2 to 3). 4. Coumadin 5 mg daily. 5. D/C sliding scale. 6. Bedtime snack. 7. Tramadol scheduled b.i.d. scheduled dose. 8. Tylenol 325 mg q.4. 9. Continue Metformin daily. 10. PT/OT. Plan and coordination of the patient's care discussed in the presence of Visual C Developer and nurse. CONDITION: Stable SCRIBED BY: LISA HOLGUIN Cyber Security Analyst scribed while in presence of service performed by Dr. ROBB BROWER/NEMO BARBER APRN on 11/15/16 ([id number])
--- NOTE | 2016-11-15 13:04 | PN ---
DATE OF SERVICE: 11/14/16 SUBJECTIVE: The patient was seen and examined with Nurse Practitioner. REVIEW OF SYSTEMS: CONSTITUTIONAL: No night sweats. No fatigue, malaise, lethargy. No fever or chills. HEENT: Eyes: No visual changes. No eye pain. No eye discharge. ENT: No runny nose. No epistaxis. No sinus pain. No sore throat. No odynophagia. No congestion. RESPIRATORY: No cough, no congestion. No hemoptysis. CARDIOVASCULAR: No angina symptoms. No CHF symptoms. No atypical chest pain for CAD. No palpitations. No shortness of breath. GASTROINTESTINAL: No abdominal pain. No nausea or vomiting. No diarrhea or constipation. No hematemesis. No hematochezia. GENITOURINARY: No urgency. No frequency. No dysuria. No hematuria. No obstructive symptoms. No discharge. No pain. No significant abnormal bleeding. MUSCULOSKELETAL: No musculoskeletal pain; no joint swelling. NEUROLOGICAL: No headache. No neck pain. No syncope. No seizures. No dizziness. PSYCHIATRIC: Not anxious. No depression. No suicidal thoughts. No homicidal thoughts. SKIN: No rash. No lesions. No wounds. ENDOCRINE: No unexplained weight loss. No weight gain. HEMATOLOGIC/LYMPHATIC: No anemia. No purpura. No petechiae. No prolonged or excessive bleeding. No palpable lymph nodes. PHYSICAL EXAMINATION: GENERAL: The patient is oriented to time, place and person. VITAL SIGNS: Blood pressure 160/86 and will monitor that. HEENT: Head normocephalic, atraumatic. Eyes: Extraocular muscles are intact. Pupils are equal, round and reactive to light and accommodation. Ears: No lesions. Nose appeared normal. Throat: No exudate or erythema. NECK: Supple. No JVD, no carotid bruit. No lymphadenopathy or thyromegaly. LUNGS: Decreased breaths sounds clear to auscultation. Percussion note normal. Chest symmetrical. HEART: S1, S2, no S3. No murmurs. No cyanosis or clubbing. No ascites. Pulses: Dorsalis pedis and posterior tibial pulses +1 to +2 both sides. ABDOMEN: Soft. Nontender. Bowel sounds active. No CVA tenderness. No mass felt. EXTREMITIES: No edema. Full range of motion of all extremities, equal. NEUROLOGIC: No focal deficit. Cranial nerves II through XII are grossly intact. No headache, no double vision or headache. SKIN: Not dry. Intact. Turgor - normal. LYMPHATIC: No palpable lymph nodes/no lymphedema. MUSCULOSKELETAL: Normal joints with no swelling. Muscle tone is normal. LABS: Acceptable with hgb 12.2, hct 37, WBC 4,900 normal differential, creatinine 0.6 , BUN 10, potassium 4 ASSESSMENT: 1. Back pain, under control PLAN: 1. The patient needs some help the patient is not able to live by himself because he is unable to ambulate and carry on his activity of daily living with assistance. His back is less of the problems. 2. The patient's x-ray showed that his fractures are stable. 3. The patient has been on sliding scale only. The Lantus has been stopped. 4. The patient has been started on 5mg of Coumadin and now INR is 1.97. CONDITION: Stable. TIME SPENT: More than 30 minutes. Plan and coordination of the patient's care discussed in the presence of nurse. CAROLINE
--- NOTE | 2016-11-26 09:42 | DS ---
DATE OF SERVICE: 11/15/16 FINAL DIAGNOSIS: 1. BACK PAIN WITH PREVIOUS COMPRESSION FRACTURE L3-L4 2. FALL, HISTORY OF 3. GENERALIZED WEAKNESS 4. HYPOGLYCEMIA 5. DIABETES MELLITUS, TYPE 2 6. DEMENTIA 7. HYPERTENSION 8. CAD 9. LVH 10. PULMONARY EMBOLISM, 2011 11. DDD, DJD SPINE 12. CABG DISCHARGE VITAL SIGNS: Temperature 98.2, pulse 69, respiratory rate 20, BP 155/93, pulse ox 95 DISCHARGE INSTRUCTIONS: 1. Followup appointment during half-way rounds. 2. Discharge to [facility] ([facility]) 3. Physical and Occupational Therapy evaluation and treat 4. Vital signs daily for one week then weekly 5. Assist patient with bathroom or urinary p.r.n. 6. Accu-Checks a.c. and h.s. and administer Humulin R insulin per Dr. Varghese's sliding scale 7. Give bedtime snack every night and document intake 8. PT/INR daily until INR is between 2.0-3.0 then PT/INR weekly 9. CBC, CMP in one week then monthly MEDICATIONS AT DISCHARGE: 1. Sotalol 40 mg p.o. b.i.d. 2. Atorvastatin (Lipitor) 40 mg p.o. bedtime 3. Metformin 1000 mg p.o. q.a.m. 4. Tamsulosin (Flomax) 0.4 mg p.o. daily 5. Losartan (Cozaar) 100 mg p.o. daily 6. Acetaminophen 325 mg p.o. q.6-8h p.r.n. 7. Tramadol 50 mg p.o. q.12h p.r.n. NEW PRESCRIPTIONS: 1. Tramadol 50 mg b.i.d. 2. Humulin R a.c. and h.s. p.r.n. hyperglycemia a) Accu-Check reading up to 140 = no insulin b) Accu-Check reading 141-200 = 3 units c) Accu-Check reading 201-260 = 4 units d) Accu-Check reading 261-320 = 6 units e) Accu-Check reading 321-400 = 8 units f) Accu-Check reading 400-600 = 15 units g) Over [address] Varghese h) Coumadin 5 mg daily at supper DIET INSTRUCTIONS: Consistent carbohydrates, golf teacher consultation for optimal nutritional intake ACTIVITY: Up to dining room for meals SMOKING: N/A DISEASE SPECIFIC EDUCATION: 1. Hypoglycemia 2. Pain 3. Activity 4. Importance of completing physical therapy REVIEW OF SYSTEMS: CONSTITUTIONAL: No night sweats. No fatigue, malaise, lethargy. No fever or chills. HEENT: Eyes: No visual changes. No eye pain. No eye discharge. ENT: No runny nose. No epistaxis. No sinus pain. No sore throat. No odynophagia. No congestion. RESPIRATORY: No cough, no congestion. No hemoptysis. CARDIOVASCULAR: No angina symptoms. No CHF symptoms. No atypical chest pain for CAD. No palpitations. No shortness of breath. No PND, no orthopnea. GASTROINTESTINAL: No abdominal pain. No nausea or vomiting. No diarrhea or constipation. No hematemesis. No hematochezia. GENITOURINARY: No urgency. No frequency. No dysuria. No hematuria. No obstructive symptoms. No discharge. No pain. No significant abnormal bleeding. MUSCULOSKELETAL: Mild chronic pain. NEUROLOGICAL: No headache. No neck pain. No syncope. No seizures. No dizziness. PSYCHIATRIC: Not anxious. No depression. No suicidal thoughts. No homicidal thoughts. SKIN: No rash. No lesions. No wounds. ENDOCRINE: No unexplained weight loss. No weight gain. HEMATOLOGIC/LYMPHATIC: No anemia. No purpura. No petechiae. No prolonged or excessive bleeding. No palpable lymph nodes. PHYSICAL EXAMINATION: GENERAL: The patient is oriented to place with bouts of confusion. HEENT: Head normocephalic, atraumatic. Eyes: Extraocular muscles are intact. Pupils are equal, round and reactive to light and accommodation. Ears: No lesions. Nose appeared normal. Throat: No exudate or erythema. NECK: Supple. No JVD, no carotid bruit. No lymphadenopathy or thyromegaly. LUNGS: Diminished bilaterally but clear to auscultation. Percussion note normal. Chest symmetrical. HEART: S1, S2, no S3. No murmurs, clicks or rubs. No cyanosis or clubbing. No ascites. Pulses: Dorsalis pedis and posterior tibial pulses +1 to +2 both sides. ABDOMEN: Soft. Nontender. The patient has a history of urinary incontinence. Bowel sounds active. No CVA tenderness. No mass felt. EXTREMITIES: No clubbing, cyanosis or edema. Full range of motion of all extremities, equal. NEUROLOGIC: No focal deficit. Cranial nerves II through XII are grossly intact. No headache, no double vision or headache. SKIN: Not dry. Intact. Turgor - normal. LYMPHATIC: No palpable lymph nodes/no lymphedema. MUSCULOSKELETAL: Normal joints with no swelling. Muscle tone is normal. HOSPITAL COURSE: This is a 80-year-old male who was admitted through the emergency room. He arrived in the emergency room after his neighbor had found him at home. He had fallen and was unable to get up. The patient was previously hospitalized several weeks ago for a compression fracture of L3-L4 after a fall at home. He was placed in [facility] which his nephew subsequently took him home after two days stay. Upon arrival in the ER, CT of the neck and total spine was conducted which was negative for any new fractures. L3-L4 were both stable. The patient was subsequently admitted for pain control. He stated her hurt all over after falling. He was placed in the hospital. During the course of his stay he was experiencing some hypoglycemia. His insulin was changed to just sliding scale insulin. His Lantus was discontinued at night. He does remain on Glucophage once a day. For the past two days he has had no episodes of hypoglycemia and has received 9 units yesterday of regular insulin for the sliding scale and 10 units previously the day before. This morning his glucose was 92. He has been receiving a bedtime snack. We will continue this at the half-way. Also upon admission his INR was elevated. His Coumadin was subsequently held which we restarted at 5 mg. It was elevated to 4.71 on admission. It was held and restarted yesterday at 5 mg daily. LAB DATA: On the day of discharge - today INR is 1.33, we will continue with 5 mg of Coumadin daily. Hemoglobin 13.4, hematocrit 40.1, blood sugar 92, sodium 145, potassium 3.9. He was in stable condition. His pain is being controlled with Tramadol 50 mg b.i.d. p.r.n. which we will continue at the half-way. He is to go to [facility] again today for physical therapy treatment and evaluation. It was discussed with his family that this would be in his best interest to stay in the half-way so he does not have anyone to stay with him 24 hours a day and has a history of falls. We are also going to emphasize he needs a bedtime snack at night due to his frequency of hypoglycemia especially in the mornings; otherwise, his medications will stay the same. He is being discharged in stable condition. TIME SPENT: More than 60 minutes. CAROLINE
== END 2016-11-15 11:23 | DRG 552 ==
LOC: ED 20:00 → MEDSURG B 21:37
PROVIDERS: ADMIT Internal Medicine; ATTEND Internal Medicine
DX: M54.9 Dorsalgia, unspecified (principal); M51.36 Other intervertebral disc degeneration, lumbar region; M47.9 Spondylosis, unspecified; M16.0 Bilateral primary osteoarthritis of hip; I10 Essential (primary) hypertension; E16.2 Hypoglycemia, unspecified; E11.9 Type 2 diabetes mellitus without complications; I48.91 Unspecified atrial fibrillation; R53.1 Weakness; I25.10 Atherosclerotic heart disease of native coronary artery without angina pectoris; I51.7 Cardiomegaly; F03.90 Unspecified dementia, unspecified severity, without behavioral disturbance, psychotic disturbance, mood disturbance, and anxiety; W19.XXXA Unspecified fall, initial encounter; Z86.711 Personal history of pulmonary embolism; Z87.311 Personal history of (healed) other pathological fracture; Z91.81 History of falling; Z79.01 Long term (current) use of anticoagulants; Z95.1 Presence of aortocoronary bypass graft
CPT/HCPCS: 36415; 80053; 82962; 85025; 85610; 87081; 93005; 93010; 99284

== ENCOUNTER 2017-10-09 15:56 | Outpatient (CLI) | payer OTHER ==
--- NOTE | 2017-10-09 16:32 | CT ---
Exam: CT abdomen pelvis without intravenous contrast. Comparison: 07/01/2017. Reason for exam: Abdominal pain. FINDINGS: There is mild basilar atelectasis/pneumonia. Similar appearing moderate to large hiatal h ernia in the partially imaged lung bases. Image interpretation is limited by the lack of intravenous contrast administration. The liver, gallbladder, and adrenal glands appear grossly unremarkable within limitations of a noncon trasted study. Old granulomas disease is seen within the spleen. There is fatty infiltration of the pancreas withou t obvious ductal dilatation. No hydronephrosis, hydroureter, or nephrolithiasis is seen in either kidney. No focal small bowel dilatation or transition point. No intra-abdominal free air or pelvic free fluid. There is dense atherosclerotic disease in the aorta and distal arterial vasculature. The appendix appears grossly unremarkable. There is nonspecific nodularity in the right lower quadrant with surrounding inflammatory change seen on axial image number 50 measuring approximately 2 cm. The imaged osseous structures appear diffusely demineralized. Similar appearing compression deformit ies are seen in the lumbar spine not significantly changed from previous exam. No suspicious appeari ng osteoblastic or osteolytic lesion. There is moderate degenerative disease with intervertebral body disc space height narrowing and osteo phyte formation. Impression: 1. 2 cm nodular density in the right midabdomen mesenteric fat seen on axial image number 50 with chaparro rrounding inflammatory change. Imaging findings can be seen with a prominent lymph node. Other pote ntial etiologies would include a carcinoid. Follow-up imaging is recommended. 2. Basilar atelectasis/pneumonia. Image interpretation is limited by the lack of intravenous contras t. 3. Large hiatal hernia
== END 2017-10-09 15:57 | disposition home or self-care (01) ==
LOC: RAD 15:56
PROVIDERS: ATTEND Internal Medicine
DX: R10.9 Unspecified abdominal pain (principal)

== ENCOUNTER 2017-11-04 07:53 | Outpatient (CLI) ==
--- NOTE | 2017-11-04 10:04 | CT ---
EXAM: CT of the abdomen pelvis with and without contrast History: Follow-up abdominal mass. Comparison: CT abdomen pelvis 10/09/2017 Technique: Multiplanar CT images through the abdomen were obtained with and without the administrati on of IV contrast Findings: Lung bases are free of consolidation. No acute osseous abnormalities. Stable chronic comp ression deformities at L1 and L3. No renal stones and no hydronephrosis. The appendix is normal. No discrete gallstones identified by CT. Calcified granulomas are seen within the spleen. Hiatal hernia again noted. No focal liver les ions. There is some atrophy of the pancreas but no pancreatic lesions. Atherosclerotic vascular lance cifications. Adrenal glands are unremarkable. No renal masses. There is wall thickening and mild d ilatation of the distal small bowel. No significant interval change in the 2 cm soft tissue mass in the right lower quadrant of the abdomen. No bladder wall thickening. Prostate is not seen. No free air. No ascites. Impression: 1. Wall thickening and mild dilatation of the distal small bowel consistent with a partial small justino l obstruction. The wall thickening could be due to infectious/inflammatory process or neoplastic inf iltration. 2. No significant interval change in the 2 cm right lower quadrant soft tissue nodule which could be reactive or malignant carcinoid tumor. A biopsy may be needed versus further evaluation with [employer] Octreoscan[employer] Critical results communicated to Dr. Varghese at 9:58 p.m. 11/04/2017
== END 2017-11-04 07:54 | disposition home or self-care (01) ==
LOC: RAD 07:53
PROVIDERS: ATTEND Internal Medicine
DX: R19.07 Generalized intra-abdominal and pelvic swelling, mass and lump (principal)
CPT/HCPCS: 36415; 82565